=== PATIENT | female | born 1975 | race Caucasian/White ===

== ENCOUNTER 2017-12-25 16:59 | Outpatient (CLI) | payer BC ==
[2017-12-25] MEDS ORDERED: SODIUM CHLORIDE 0.9% 2,000 ML IV ONE (17:14)
[2017-12-25 18:12] VITALS: BP 136/83; PULSE 126; RESP 20; TEMP 100.8
[2017-12-25 18:31] LABS: Anion Gap 12 mmol/L; Blood Urea Nitrogen 13 mg/dL (7-17); Carbon Dioxide 27 mmol/L (22-30); Chloride 98 mmol/L (98-107); Glucose 110 mg/dL (74-99); Potassium 3.7 mmol/L (3.5-5.1); Sodium 137 mmol/L (137-145)
[2017-12-25 18:40] LABS: Anisocytosis Slight; Basophils % (A) 0 %; Eosinophils # (A) 0.2 k/uL (0-0.7); Eosinophils % (A) 1 %; HCT 29.5 % (34.0-46.0); HGB 9.4 gm/dL (11.4-16.0); Hypochromasia Slight; Lymphocytes # (A) 2.2 k/uL (1.0-4.8); Lymphocytes % (A) 17 %; MCH 24.9 pg (25.0-35.0); MCV 77.9 fL (80.0-100.0); Mean Platelet Volume 7.8; Microcytosis Slight; Monocytes # (A) 0.5 k/uL (0-1.0); Monocytes % (A) 4 %; Neutrophils % (A) 77 %; Platelet Count 325 k/uL (150-450); RBC 3.79 m/uL (3.80-5.40); RDW 16.1 % (11.5-15.5); WBC 13.1 k/uL (3.8-10.6)
--- NOTE | 2017-12-25 20:06 | P.PN ---
Progress Note - Text Progress Note Date: 12/25/17 Patient seen and evaluated. She was sent from the office for tachycardia and mild fever. She reports moderate dehydration. She feels better after IV bolus. She denies any abdominal pain. WBC improved from 16K from 3 days ago. She reports baseline tachycardia prior to her surgery. Metoprolol ordered. Will need additional bolus as needed.
--- NOTE | 2017-12-25 23:37 | CT ---
EXAMINATION TYPE: CT abdomen pelvis w con DATE OF EXAM: 12/25/2017 HISTORY: Fever and weakness, post op gastric bypass surgery x5 days CT DLP: 1860mGycm Automated Exposure Control for Dose Reduction was Utilized. CONTRAST: CT scan of the abdomen and pelvis is performed with oral and with IV Contrast, patient injected with 60 mL of Isovue 300. COMPARISON: None FINDINGS: Exam noted suboptimal due to poor contrast bolus. LUNG BASES: Dependent atelectasis is present bilaterally. There is additional right linear atelectasi s and/or scarring and more irregular left basilar atelectasis and/or consolidation. LIVER/GB: Gallbladder is distended margins. Liver is heterogeneously low dense suggesting mild diffus e fatty infiltration.. PANCREAS: No significant abnormality is seen. SPLEEN: There is 1.2 cm splenule in splenic hilum. ADRENALS: No significant abnormality is seen. KIDNEYS: No significant abnormality is seen. BOWEL: The oral contrast only reaches proximal small bowel loops in the left abdomen. There is wall t hickening and dilatation of the visualized distal esophagus which is contrast-filled. Surgical change s from gastric bypass procedure seen in the epigastric region. There is successful passage of contras t from the gastric remnant into the anastomotic small bowel loop which is mildly prominent origin. By passed stomach and duodenal sweep show no contrast opacification. Remainder small and large bowel are not suspiciously dilated. Diverticula are seen in the sigmoid colon without CT evidence for acute di verticulitis. UTERUS/ADNEXA: Anteverted uterus is seen. There is tubular shaped gas structure in vaginal canal like ly reflecting tampon. LYMPH NODES: No greater than 1cm abdominal or pelvic lymph nodes are appreciated. OSSEOUS STRUCTURES: No significant abnormality is seen. OTHER: Some heterogeneous ill-defined fluid and fat stranding left mid abdominal wall just above umbi licus coronal image 16 likely reflects ports for laparoscopic surgery, second smaller area is seen stuart periorly axial image 28. Cannot exclude cellulitis or soft tissue infection. No well-formed fluid col lection or abscess is seen. IMPRESSION: Left abdominal wall findings presumed reflect developing scar related to recent laparosco pic surgery, a cellulitis or soft tissue infection cannot be excluded in the appropriate clinical set ting. Possible left lung pneumonic consolidation, correlate clinically. No abscess is noted.
== END 2017-12-25 21:59 | disposition home or self-care (01) ==
LOC: RADCTMAIN 16:59
PROVIDERS: ATTEND Surgery Plastic and Reconstructive Surgery
DX: Z09 Encounter for follow-up examination after completed treatment for conditions other than malignant neoplasm (principal); E66.01 Morbid (severe) obesity due to excess calories; Z68.41 Body mass index [BMI] 40.0-44.9, adult; Z98.84 Bariatric surgery status
CPT/HCPCS: 96360; 96361; 80048; 85025; 74177; Q9967; 96365; 96366

== ENCOUNTER → 2017-12-28 | Outpatient (CLI) | payer BC ==
[~2017-12-28] MED LIST: SODIUM CHLORIDE 0.9% 500 ML in EMPTY BAG 1 BAG IV PRN
[2017-12-28 13:30] VITALS: BP 118/65; PULSE 120; RESP 16; TEMP 98.7
[2017-12-28] MEDS: SODIUM CHLORIDE 0.9% 1,000 ML IV SCH ×2 (13:33→14:39)
[2017-12-28 14:05] LABS: Basophils % (A) 0 %; Eosinophils # (A) 0.3 k/uL (0-0.7); Eosinophils % (A) 3 %; HCT 30.5 % (34.0-46.0); HGB 9.4 gm/dL (11.4-16.0); Hypochromasia Moderate; Lymphocytes # (A) 1.5 k/uL (1.0-4.8); Lymphocytes % (A) 16 %; MCH 24.3 pg (25.0-35.0); MCHC 30.8 g/dL (31.0-37.0); Mean Platelet Volume 6.5; Monocytes # (A) 0.4 k/uL (0-1.0); Monocytes % (A) 4 %; Neutrophils % (A) 74 %; Platelet Count 369 k/uL (150-450); RBC 3.87 m/uL (3.80-5.40); RDW 15.9 % (11.5-15.5); WBC 9.4 k/uL (3.8-10.6)
--- NOTE | 2017-12-28 15:47 | P.PN ---
Subjective Progress Note Date: 12/28/17 Patient is status revision from adjustable gastric band to post gastric bypass 1 week ago. She came in with acute dehydration. She has history of contaminated case initially. With IV fluid hydration, her dizziness has improved. No further reports of fevers. She denies any moderate abdominal pain. She is tolerating liquids. No dyspnea on exertion. She has history of baseline tachycardia preoperatively. Objective - Vital Signs Vital signs: Vital Signs Temp 98.7 F 12/28/17 13:28 Pulse 120 H 12/28/17 13:28 Resp 16 12/28/17 13:28 BP 118/65 12/28/17 13:28 Pulse Ox Intake & Output 12/27/17 12/28/17 12/28/17 18:59 06:59 18:59 Weight 106.594 kg - Exam GENERAL: Well developed and in no acute distress. Pleasant. HEENT: No sclera icterus. Extraocular movements grossly intact. Moist buccal mucosa. Head is atraumatic, normocephalic. Hears conversational speech. No nasal drainage. NECK: Supple without lymphadenopathy. No JV distention. CHEST: Non-labored respirations and equal bilateral excursions. CARDIOVASCULAR: Tachycardic. Palpable 2+ radial pulses. ABDOMEN: Soft, minimal left upper quadrant pain. Nondistended. No signs of infection MUSCULOSKELETAL: No clubbing, cyanosis or edema. NEUROLOGIC: No focal or lateralizing signs. PSYCH: Appropriate affect. Alert and oriented to person, place and time. SKIN: Good skin turgor. Well perfused. - Labs CBC & Chem 7: 12/28/17 13:30 Labs: Abnormal Lab Results - Last 24 Hours (Table) 12/28/17 Range/Units 13:30 Hgb 9.4 L (11.4-16.0) gm/dL Hct 30.5 L (34.0-46.0) % MCV 79.0 L (80.0-100.0) fL MCH 24.3 L (25.0-35.0) pg MCHC 30.8 L (31.0-37.0) g/dL RDW 15.9 H (11.5-15.5) % - Imaging and Cardiology CT scan - abdomen: report reviewed, image reviewed CT scan - pelvis: report reviewed, image reviewed (Previous computed tomography scan negative for leaks) Assessment and Plan (1) Dehydration Current Visit: Yes Status: Acute Code(s): E86.0 - DEHYDRATION SNOMED Code( s): 77645307 (2) S/P gastric bypass Current Visit: Yes Status: Acute Code(s): Z98.84 - BARIATRIC SURGERY STATUS SNOMED Code(s): 329383733 Plan: 1. IV fluid hydration 2. Continue with perioperative antibiotics due to initial contaminated case 3. Continue with metoprolol for heart rate control
== END | disposition home or self-care (01) ==
LOC: PROCWHC3 12:44
PROVIDERS: ATTEND Surgery Plastic and Reconstructive Surgery
DX: E86.0 Dehydration (principal)
CPT/HCPCS: 36415; 85025; 96360; 96361

== ENCOUNTER → 2018-10-08 | Outpatient (CLI) | payer BC ==
[2018-10-08 17:54] LABS: HCT 41.6 % (34.0-46.0); HGB 13.2 gm/dL (11.4-16.0); MCH 29.6 pg (25.0-35.0); MCHC 31.8 g/dL (31.0-37.0); MCV 93.1 fL (80.0-100.0); Mean Platelet Volume 7.7; Platelet Count 259 k/uL (150-450); RBC 4.46 m/uL (3.80-5.40); RDW 12.6 % (11.5-15.5); WBC 14.1 k/uL (3.8-10.6)
[2018-10-08 18:08] LABS: INR 0.9 (<1.2); Prothrombin Time 9.6 sec (9.0-12.0)
[2018-10-08 18:10] LABS: Partial Thromboplastin Time 18.3 sec (22.0-30.0)
[2018-10-09 00:33] LABS: Albumin 4.5 g/dL (3.80-4.90); Albumin/Globulin Ratio 2.05 (1.60-3.17); Anion Gap 10.7 mmol/L (4.00-12.00); Calcium 8.7 mg/dL (8.7-10.3); Carbon Dioxide 23.3 mmol/L (21.6-31.8); Globulin 2.2 g/dL (1.6-3.3); LDL Cholesterol,Calculated 68.8 mg/dL (0.0-131.0); Magnesium 1.7 mg/dL (1.5-2.4); Potassium 4.2 mmol/L (3.5-5.5); Total Bilirubin 0.3 mg/dL (0.3-1.2); Total Protein 6.7 g/dL (6.2-8.2); VLDL Calculation 22.2 mg/dL (5.00-40.00)
[2018-10-09 01:07] LABS: Parathyroid Hormone Intact 60.3 pg/mL (14.0-72.0)
[2018-10-09 01:36] LABS: Iron Saturation 16.27 (12.00-45.00)
[2018-10-09 01:43] LABS: Vitamin D 25 Hydroxy 32.5 ng/mL (30.0-100.0)
[2018-10-09 01:54] LABS: Folate, Serum 12.2 ng/mL
[2018-10-09 02:59] LABS: Hemoglobin A1C 5.8 % (4.0-6.0)
[2018-10-09 12:04] LABS: Zinc, Serum 57 ug/dL (60-130)
[2018-10-09 13:24] LABS: Vitamin A 47 ug/dL (38-106)
== END | disposition home or self-care (01) ==
LOC: LABWHC1 16:47
PROVIDERS: ATTEND Surgery Plastic and Reconstructive Surgery
DX: E66.01 Morbid (severe) obesity due to excess calories (principal); E21.1 Secondary hyperparathyroidism, not elsewhere classified; E89.1 Postprocedural hypoinsulinemia; D50.8 Other iron deficiency anemias; K90.89 Other intestinal malabsorption; E55.9 Vitamin D deficiency, unspecified; K76.9 Liver disease, unspecified; N19 Unspecified kidney failure; K50.90 Crohn's disease, unspecified, without complications
CPT/HCPCS: 36415; 80053; 80061; 82306; 82525; 82607; 82728; 82746; 83036; 83540; 83550; 83735; 83970; 84100; 84134; 84255; 84425; 84443; 84590; 84630; 85027; 85610; 85730

== ENCOUNTER 2019-01-10 07:27 | Day surgery (SDC) | payer BC ==
[2019-01-08 11:52] VITALS: BMI 35.9
[~2019-01-10 07:27] MED LIST changes: +LACTATED RINGERS 1,000 ML IV SCH; +LIDOCAINE 1% 20 ML VIAL (10MG/ML) FOR IV START INTRADERMA PRN; -SODIUM CHLORIDE 0.9% 500 ML in EMPTY BAG 1 BAG IV PRN
[2019-01-10 07:51] VITALS: RESP 16; TEMP 97.8
[2019-01-10] MEDS ORDERED: LIDOCAINE 1% 20 ML VIAL (10MG/ML) FOR IV START INTRADERMA ONE (08:04)
[2019-01-10] MEDS ORDERED: LIDOCAINE 1% INJ 10MG/ML (20 ML MDV) ONE (08:10)
[2019-01-10] MEDS ORDERED: PROPOFOL 10 MG/ML 20 ML VIAL IV ONE (08:10)
--- NOTE | 2019-01-10 08:17 | P.GSHP ---
History of Present Illness H&P Date: 01/10/19 CHIEF COMPLAINT: GERD HISTORY OF PRESENT ILLNESS: The patient is a 43-year-old female who presents reports gastroesophageal reflux disease. Upper endoscopy was offered for further evaluation and management. PAST MEDICAL HISTORY: Please see list. PAST SURGICAL HISTORY: Please see list. MEDICATIONS: Please see list. ALLERGIES: Please see list. SOCIAL HISTORY: No illicit drug use FAMILY HISTORY: No reports of Crohn disease or ulcerative colitis. REVIEW OF ORGAN SYSTEMS: CONSTITUTIONAL: No reports of fevers or chills. GI: Denies any blood in stools or constipation. PHYSICAL EXAM: VITAL SIGNS: Stable GENERAL: Well-developed and pleasant in no acute distress. HEENT: No scleral icterus. Extraocular movements grossly intact. Moist buccal mucosa. NECK: Supple without lymphadenopathy. CHEST: Unlabored respirations. Equal bilateral excursions. CARDIOVASCULAR: Regular rate and rhythm. Distal 2+ pulses. ABDOMEN: Soft, nondistended. MUSCULOSKELETAL: No clubbing, cyanosis, or edema. ASSESSMENT: 1. Gastroesophageal reflux disease PLAN: 1. Recommend proceeding with an upper endoscopy Past Medical History Past Medical History: GERD/Reflux, Hypertension, Osteoarthritis (OA) Additional Past Medical History / Comment(s): DEHYDRATION POST BARIATRIC SURGERY. History of Any Multi-Drug Resistant Organisms: None Reported Past Surgical History: Bariatric Surgery, Section, Tonsillectomy Additional Past Surgical History / Comment(s): GASTRIC BYPASS-12/2017 Past Anesthesia/Blood Transfusion Reactions: No Reported Reaction Smoking Status: Former smoker - Past Family History Father Family Medical History: No Reported History Medications and Allergies Home Medications Medication Instructions Recorded Confirmed Type Amitriptyline HCl [Elavil] 10 mg PO HS 12/28/17 01/10/19 History Omeprazole [PriLOSEC] 20 mg PO DAILY 12/28/17 01/10/19 History oxyCODONE HCL/ACETAMINOPHEN 1 tab PO BID PRN 12/28/17 01/10/19 History [Percocet 10-325 mg] tiZANidine HCL [Zanaflex] 6 mg PO HS PRN 12/28/17 01/10/19 History Ibuprofen [Motrin] 800 mg PO BID PRN 01/08/19 01/10/19 History Allergies Allergy/AdvReac Type Severity Reaction Status Date / Time No Known Allergies Allergy Verified 01/10/19 07:56 Surgical - Exam Vital Signs Temp Pulse Resp BP Pulse Ox 97.8 F 86 16 141/70 99 01/10/19 07:50 01/10/19 07:50 01/10/19 07:50 01/10/19 07:50 01/10/19 07:50
--- NOTE | 2019-01-10 08:26 | P.PCN ---
Date of Procedure: 01/10/19 Description of Procedure: PREOPERATIVE DIAGNOSIS: Gastroesophageal reflux disease Dysphagia. s/p Arsh-en-y gastric bypass. Nausea with vomiting. Morbid obesity. Epigastric abdominal pain POSTOPERATIVE DIAGNOSIS: Gastroesophageal reflux disease Dysphagia. s/p Arsh-en-y gastric bypass. Nausea with vomiting. Morbid obesity. Epigastric abdominal pain Gastrojejunal stricture with chronic ulcer without perforation OPERATION: Esophagogastrojejunoscopy with balloon dilatation 20 mm. SURGEON: Roberta Duval MD ANESTHESIA: MAC. INDICATIONS: The patient is a 43-year-old female who presents with a history of dysphagia, gastric bypass including new-onset nausea and vomiting. Benefits and risks of the procedure were described. Informed consent was obtained. DESCRIPTION: The patient was brought into the endoscopy suite and laid in the left lateral decubitus position. After a timeout was confirmed, the procedure was initiated. An Olympus gastroscope was passed along the posterior oropharynx down to the distal esophagus where the squamocolumnar junction was unremarkable. The gastric pouch was entered. A gastrojejunal stricture of 15 mm was found as the adult gastroscope was 9.5 mm in size. A [employer] balloon dilator was placed through the scope. Final insufflation up to 20 mm was performed with a total of 2 minutes. The scope was advanced up to 60 cm from the incisors into the Arsh limb. The mucosa of the gastrojejunal anastomosis was intact. However chronic gastrojejunal marginal ulcer was encountered. No full-thickness injury was encountered. The GI tract was desufflated. The patient tolerated the procedure well. FINDINGS: Stricture of approximately 15 mm encountered. Chronic gastrojejunal ulceration encountered. Successful balloon dilatation to 20 mm. Diaphragmatic hiatus at 40 cm. Gastric pouch 10 cm. RECOMMENDATIONS: Omeprazole of at least 2 weeks. Plan - Discharge Summary Discharge Rx Participant: No New Discharge Prescriptions: Discontinued Ibuprofen [Motrin] 800 mg PO BID PRN PRN Reason: Pain No Action tiZANidine HCL [Zanaflex] 6 mg PO HS PRN PRN Reason: Insomnia Omeprazole [PriLOSEC] 20 mg PO DAILY Amitriptyline HCl [Elavil] 10 mg PO HS oxyCODONE HCL/ACETAMINOPHEN [Percocet 10-325 mg] 1 tab PO BID PRN PRN Reason: Pain Discharge Medication List Amitriptyline HCl [Elavil] 10 mg PO HS 12/28/17 [History] Omeprazole [PriLOSEC] 20 mg PO DAILY 12/28/17 [History] oxyCODONE HCL/ACETAMINOPHEN [Percocet 10-325 mg] 1 tab PO BID PRN 12/28/17 [History] tiZANidine HCL [Zanaflex] 6 mg PO HS PRN 12/28/17 [History] Follow up Appointment(s)/Referral(s): Roberta Duval MD [STAFF PHYSICIAN] - 02/04/19 Patient Instructions/Handouts: Peptic Ulcer (ED), Esophageal Dilation (DC) Activity/Diet/Wound Care/Special Instructions: Avoid NSAIDs, ibuprofen, Aleve for ulcers. Take omeprazole daily for 2 weeks Discharge Disposition: HOME SELF-CARE
[2019-01-10 08:45] VITALS: BP 120/76; PULSE 89
== END 2019-01-10 09:04 | disposition home or self-care (01) ==
LOC: ORWHC2ENDO 07:27
PROVIDERS: ATTEND Surgery Plastic and Reconstructive Surgery
DX: K95.89 Other complications of other bariatric procedure (principal); K28.7 Chronic gastrojejunal ulcer without hemorrhage or perforation; K31.89 Other diseases of stomach and duodenum; K44.9 Diaphragmatic hernia without obstruction or gangrene; K21.9 Gastro-esophageal reflux disease without esophagitis; E66.01 Morbid (severe) obesity due to excess calories; I10 Essential (primary) hypertension; M19.90 Unspecified osteoarthritis, unspecified site; Z87.891 Personal history of nicotine dependence; Z98.84 Bariatric surgery status; R13.10 Dysphagia, unspecified; Z68.35 Body mass index [BMI] 35.0-35.9, adult; F39 Unspecified mood [affective] disorder; Z79.1 Long term (current) use of non-steroidal anti-inflammatories (NSAID); Z79.899 Other long term (current) drug therapy; Y83.6 Removal of other organ (partial) (total) as the cause of abnormal reaction of the patient, or of later complication, without mention of misadventure at the time of the procedure
CPT/HCPCS: 81025; 43245; J2001; J2704; C1726

== ENCOUNTER → 2019-03-19 | Outpatient (CLI) | payer BC ==
--- NOTE | 2019-03-19 18:21 | P.PN ---
Subjective Progress Note Date: 03/19/19 HPI: Repeat blood pressure with 129/70. She has epigastric pain. Large pouch requiring revision. CT scan of the abdomen for chronic abdominal pain. May need revision of GJ pouch. Follow up after scans. Repeat EGD for ulcer
[2019-03-20 10:44] VITALS: BP 129/70; PULSE 89; RESP 16; TEMP 98.2
== END | disposition home or self-care (01) ==
LOC: BARWHC3 16:36
PROVIDERS: ATTEND Surgery Plastic and Reconstructive Surgery
DX: R10.13 Epigastric pain (principal)
CPT/HCPCS: 99211

== ENCOUNTER → 2019-04-14 | Outpatient (CLI) | payer BC ==
--- NOTE | 2019-04-14 08:40 | CT ---
EXAMINATION TYPE: CT abdomen pelvis w con DATE OF EXAM: 04/14/2019 COMPARISON: December 25, 2017 HISTORY: Small bowel obstruction CT DLP: 1751.1 mGycm CONTRAST: CT scan of the abdomen and pelvis is performed with Oral Contrast and with IV Contrast, patient injec noemy with 100 mL of Isovue 300. FINDINGS: LUNG BASES-: No visible nodule. No infiltrate. LIVER/GB: No calcified gallstones. No space occupying hepatic lesion. Biliary tree is of normal ca liber. PANCREAS: No inflammation. No distinct mass. SPLEEN: No splenic enlargement. No lesion seen. ADRENALS: No nodule. No thickening. KIDNEYS/BLADDER: No hydronephrosis. No nephrolithiasis. No distinct renal mass. Urinary bladder g rossly unremarkable. BOWEL: Surgical changes from gastric bypass procedure . There is successful passage of contrast from the gastric remnant into the anastomotic small bowel loop. Anastomotic small bowel loop is mildly dis tended however contrast does flow distally into normal caliber small bowel. No evidence for obstructi on at this point in time. Normal appendix identified. GENITAL ORGANS: 1.1 cm right ovarian cyst noted. Uterus and left ovary are unremarkable. LYMPH NODES: No greater than 1cm abdominal or pelvic lymph nodes are appreciated. AORTA: No significant abnormality. OSSEOUS STRUCTURES: No significant abnormality is seen. OTHER: No significant additional abnormality is seen. IMPRESSION: 1. Surgical changes from gastric bypass procedure . There is successful passage of contrast from the gastric remnant into the anastomotic small bowel loop. Anastomotic small bowel loop is mildly distend ed however contrast does flow distally into normal caliber small bowel. No evidence for obstruction a t this point in time.
== END ==
LOC: RADCTMAIN 07:25
PROVIDERS: ATTEND Surgery Plastic and Reconstructive Surgery
DX: K56.699 Other intestinal obstruction unspecified as to partial versus complete obstruction (principal); Z98.84 Bariatric surgery status
CPT/HCPCS: 74177; Q9967

== ENCOUNTER → 2019-06-05 | Day surgery (SDC) | payer BC ==
[2019-06-02 17:36] VITALS: BMI 34.8
[~2019-06-05] MED LIST changes: -LIDOCAINE 1% 20 ML VIAL (10MG/ML) FOR IV START INTRADERMA PRN; +LIDOCAINE 1% INJ 10MG/ML (20 ML MDV) ONE; +PROPOFOL 10 MG/ML 20 ML VIAL IV ONE
[2019-06-05 07:42] VITALS: RESP 16; TEMP 97.3
--- NOTE | 2019-06-05 07:46 | P.GSHP ---
History of Present Illness H&P Date: 06/05/19 CHIEF COMPLAINT: GERD HISTORY OF PRESENT ILLNESS: The patient is a 44-year-old female who presents reports gastroesophageal reflux disease. Upper endoscopy was offered for further evaluation and management. PAST MEDICAL HISTORY: Please see list. PAST SURGICAL HISTORY: Please see list. MEDICATIONS: Please see list. ALLERGIES: Please see list. SOCIAL HISTORY: No illicit drug use FAMILY HISTORY: No reports of Crohn disease or ulcerative colitis. REVIEW OF ORGAN SYSTEMS: CONSTITUTIONAL: No reports of fevers or chills. GI: Denies any blood in stools or constipation. PHYSICAL EXAM: VITAL SIGNS: Stable GENERAL: Well-developed and pleasant in no acute distress. HEENT: No scleral icterus. Extraocular movements grossly intact. Moist buccal mucosa. NECK: Supple without lymphadenopathy. CHEST: Unlabored respirations. Equal bilateral excursions. CARDIOVASCULAR: Regular rate and rhythm. Distal 2+ pulses. ABDOMEN: Soft, nondistended. MUSCULOSKELETAL: No clubbing, cyanosis, or edema. ASSESSMENT: 1. Gastroesophageal reflux disease PLAN: 1. Recommend proceeding with an upper endoscopy Past Medical History Past Medical History: GERD/Reflux, Hypertension, Osteoarthritis (OA) Additional Past Medical History / Comment(s): Past hx of dehydration post bariatric sx. Hx c/o pain in chest, improved w/ Rx. Vomiting occ w/ food. Sinus sx currently. History of Any Multi-Drug Resistant Organisms: None Reported Past Surgical History: Bariatric Surgery, Section, Orthopedic Surgery, Tonsillectomy Additional Past Surgical History / Comment(s): lap band 2006, GASTRIC BYPASS- 12/2017, neck sx X2 - fusion, then rods placed, left shoulder, rt ankle/ metal is now out, rt hand, knee arthroscopy. EGD w/ dilation 01/10/19 Past Anesthesia/Blood Transfusion Reactions: Postoperative Nausea & Vomiting (PONV) Additional Past Anesthesia/Blood Transfusion Reaction / Comment(s): denies Smoking Status: Former smoker - Past Family History Father Family Medical History: No Reported History Mother Family Medical History: Coronary Artery Disease (CAD) Additional Family Medical History / Comment(s): hx blood clots in heart, has stents Medications and Allergies Home Medications Medication Instructions Recorded Confirmed Type Amitriptyline HCl [Elavil] 10 mg PO HS 12/28/17 06/05/19 History oxyCODONE HCL/ACETAMINOPHEN 1 tab PO DAILY PRN 12/28/17 06/05/19 History [Percocet 10-325 mg] tiZANidine HCL [Zanaflex] 6 mg PO HS PRN 12/28/17 06/05/19 History Omeprazole 40 mg PO DAILY #90 capsule. 01/10/19 06/05/19 Rx Verapamil HCl [Verapamil ER] 120 mg PO QAM 03/27/19 06/05/19 History Guaifen/Phenyleph/Acetaminophn 2 each PO Q8H PRN 06/02/19 06/05/19 History [Tylenol Sinus Severe Caplet] Multivitamins, Thera [Multivitamin 1 tab PO DAILY 06/02/19 06/05/19 History (formulary)] Allergies Allergy/AdvReac Type Severity Reaction Status Date / Time No Known Allergies Allergy Verified 06/05/19 07:34 Surgical - Exam Vital Signs Temp Pulse Resp BP Pulse Ox 97.3 F L 76 16 149/90 99 06/05/19 07:41 06/05/19 07:41 06/05/19 07:41 06/05/19 07:41 06/05/19 07:41
--- NOTE | 2019-06-05 08:20 | P.PCN ---
Date of Procedure: 06/05/19 Description of Procedure: PREOPERATIVE DIAGNOSIS: History of gastrojejunal ulcers Tobacco use disorder Epigastric abdominal pain Morbid obesity due to excess calories, BMI 35 5. POSTOPERATIVE DIAGNOSIS: History of gastrojejunal ulcers Tobacco use disorder Epigastric abdominal pain Morbid obesity due to excess calories, BMI 35 5. Diffuse gastritis Diaphragmatic hiatal hernia OPERATION: Esophagogastrojejunoscopy with balloon dilatation from 15 to 18 mm. SURGEON: Roberta Duval MD ANESTHESIA: MAC. INDICATIONS: The patient is a 44-year-old female who presents with a history of gastrojejunal ulcers of epigastric abdominal pain. Benefits and risks of the procedure were described. Informed consent was obtained. DESCRIPTION: The patient was brought into the endoscopy suite and laid in the left lateral decubitus position. After a timeout was confirmed, the procedure was initiated. An Olympus gastroscope was passed along the posterior oropharynx down to the distal esophagus where the squamocolumnar junction was unremarkable. The gastric pouch was entered. A gastrojejunal stricture of 12 mm was found as the adult gastroscope was 9.5 mm in size. A fl3ur balloon dilator was placed through the scope. Final insufflation up to 18 mm was performed with a total of 2 minutes. The scope was advanced up to 60 cm from the incisors into the Arsh limb. The mucosa of the gastrojejunal anastomosis was intact. Resolved chronic gastrojejunal marginal ulcer was encountered. Localized gastritis along the pouch was found. No full-thickness injury was encountered. The GI tract was desufflated. The patient tolerated the procedure well. FINDINGS: Squamocolumnar junction unremarkable at 35 cm. Diaphragmatic hiatus 40 cm from incisors Diaphragmatic hiatal hernia, 4 cm Gastrojejunal anastomosis at 50 cm Large gastric pouch, 10 cm Stricture of approximately 15 mm encountered. Resolved chronic gastrojejunal ulceration encountered. Successful balloon dilatation to 18 mm. RECOMMENDATIONS: Tobacco cessation advised Revision of gastric pouch advised Repair of diaphragmatic hiatal hernia advised Plan - Discharge Summary Discharge Rx Participant: No New Discharge Prescriptions: No Action tiZANidine HCL [Zanaflex] 6 mg PO HS PRN PRN Reason: Insomnia Amitriptyline HCl [Elavil] 10 mg PO HS oxyCODONE HCL/ACETAMINOPHEN [Percocet 10-325 mg] 1 tab PO DAILY PRN PRN Reason: Pain Omeprazole 40 mg PO DAILY #90 capsule. Verapamil HCl [Verapamil ER] 120 mg PO QAM Guaifen/Phenyleph/Acetaminophn [Tylenol Sinus Severe Caplet] 2 each PO Q8H PRN PRN Reason: Sinus Symptoms Multivitamins, Thera [Multivitamin (formulary)] 1 tab PO DAILY Discharge Medication List Amitriptyline HCl [Elavil] 10 mg PO HS 12/28/17 [History] oxyCODONE HCL/ACETAMINOPHEN [Percocet 10-325 mg] 1 tab PO DAILY PRN 12/28/17 [History] tiZANidine HCL [Zanaflex] 6 mg PO HS PRN 12/28/17 [History] Omeprazole 40 mg PO DAILY #90 capsule. 01/10/19 [Rx] Verapamil HCl [Verapamil ER] 120 mg PO QAM 03/27/19 [History] Guaifen/Phenyleph/Acetaminophn [Tylenol Sinus Severe Caplet] 2 each PO Q8H PRN 06/02/19 [History] Multivitamins, Thera [Multivitamin (formulary)] 1 tab PO DAILY 06/02/19 [Hi story] Follow up [facility]ment(s[facility] [facility] [place] [place] [facility] - [place]19 Patient Instructions/Handouts: Hiatal Hernia (DC), Esophageal Dilation (DC), How to Stop Smoking (ED) Activity/Diet/Wound Care/Special Instructions: Diet as tolerated. Tobacco cessation. Discharge Disposition: HOME SELF-CARE
[2019-06-05 08:49] VITALS: BP 121/81; PULSE 85
== END | disposition home or self-care (01) ==
LOC: ORWHC2ENDO 07:15
PROVIDERS: ATTEND Surgery Plastic and Reconstructive Surgery
DX: K91.89 Other postprocedural complications and disorders of digestive system (principal); K31.89 Other diseases of stomach and duodenum; K29.70 Gastritis, unspecified, without bleeding; K44.9 Diaphragmatic hernia without obstruction or gangrene; K21.9 Gastro-esophageal reflux disease without esophagitis; E66.01 Morbid (severe) obesity due to excess calories; I10 Essential (primary) hypertension; F39 Unspecified mood [affective] disorder; M19.90 Unspecified osteoarthritis, unspecified site; Z87.11 Personal history of peptic ulcer disease; Z68.35 Body mass index [BMI] 35.0-35.9, adult; Z98.84 Bariatric surgery status; Z87.891 Personal history of nicotine dependence; Z79.899 Other long term (current) drug therapy; Z90.89 Acquired absence of other organs; Z98.1 Arthrodesis status; Z82.49 Family history of ischemic heart disease and other diseases of the circulatory system
CPT/HCPCS: 43249; 81025; J2001; J2704; C1726

== ENCOUNTER → 2019-06-18 | Outpatient (CLI) | payer BC ==
[2019-06-18 15:07] VITALS: BP 121/71; PULSE 80; RESP 16; TEMP 98.8; BMI 35.0
--- NOTE | 2019-06-18 15:27 | P.PN ---
Subjective Progress Note Date: 06/18/19 DATE OF SERVICE: 06/18/2019 CHIEF COMPLAINT: Status post gastric bypass HISTORY OF PRESENT ILLNESS: Shameka Murguia is a 44-year-old female who comes in with multiple bariatric procedures from adjustable gastric band to conversion to gastric bypass, November 2017. She is over 1.5 year out. She comes in with trouble with weigh loss including history of gastrojejunal ulcer. She also comes in with hypertension. Her blood pressure is controlled with two medications. She reports lack of restriction. She has history of complications with her band x 2 prior to her gastric bypass secondary to gastric prolapse and slippage. She is looking for revision of her gastric bypass. She also still has her gallbladder. At height of 5 feet 4 inches, her ideal body weight is 144 pounds. Highest weight 244 pounds, BMI 42.0. Her lowest weight was 155 pounds. She comes in 204 pounds from 205 pounds, 3 months ago. She has lost 1 pounds in 2 months. Her body mass index is 35.0. She is 60 pounds overweight. PAST MEDICAL HISTORY: 1. Morbid obesity due to excess calories 2. Body mass index of 35.2 3. Gastroesophageal reflux disease 4. Osteoarthritis of the lower back. 5. Hypertensive heart disease. 6. Depressive disorder PAST SURGICAL HISTORY: 1. ,Tonsillectomy 2. Adjustable gastric band with removal 3. Gastric bypass 4. Upper endoscopy HOME MEDICATIONS: Home Medications Medication Instructions Recorded Confirmed Amitriptyline HCl [Elavil] 10 mg PO HS 12/28/17 03/27/19 oxyCODONE HCL/ACETAMINOPHEN 1 tab PO BID PRN 12/28/17 03/27/19 [Percocet 10-325 mg] tiZANidine HCL [Zanaflex] 6 mg PO HS PRN 12/28/17 03/27/19 Verapamil HCl [Verapamil ER] 120 mg PO QAM 03/27/19 03/27/19 Previous Rx's Medication Instructions Recorded Omeprazole 40 mg PO DAILY #90 capsule. 01/10/19 ALLERGIES: SOCIAL HISTORY: Past tobacco use. FAMILY HISTORY: No family history of ulcerative colitis disease or Crohn's disease. Family history of morbid obesity. No lupus in the family. No reports of stomach or esophageal cancer. REVIEW OF ORGAN SYSTEMS: CONSTITUTIONAL: At height of 5 feet 4 inches, her ideal body weight is 144 pounds. Highest weight 244 pounds, BMI 42.0. Her lowest weight was 155 pounds. HEENT: Denies any active troubles with vision or hearing. No active troubles with swallowing. ENDOCRINE: No diabetes. No hypothyroidism. CARDIOVASCULAR: No past reports of palpitations or heart attacks or chest pain. RESPIRATORY: No pneumonia or sleep apnea. GASTROINTESTINAL: Denies any bright red blood per rectum. No diarrhea. No constipation. MUSCULOSKELETAL: Has lower back pain and joint pain. NEURO: No headaches. No seizure disorders. PSYCH: Has depression. No suicidal ideation. RHEUMATOLOGIC: No lupus. No rheumatoid arthritis. HEMATOLOGIC: Denies any abnormal bleeding or bruising. No personal history of DVTs. SKIN: No rash. No skin cancer. PHYSICAL EXAM: VITAL SIGNS: Height 5 foot 4 inches, weight 204 pounds. BMI 35.0 Vital Signs Temp 98.8 F 06/18/19 15:04 Pulse 80 06/18/19 15:04 Resp 16 06/18/19 15:04 BP 121/71 06/18/19 15:04 Pulse Ox GENERAL: Well-developed in no acute distress. HEENT: No scleral icterus. Extraocular movements grossly intact. Hears conversational speech. No nasal drainage. NECK: Supple without lymphadenopathy. CHEST: Nonlabored respirations with equal bilateral excursions. CARDIOVASCULAR: Regular rate and regular rhythm. Distal 2+ pulses. ABDOMEN: Obese, soft, nontender, nondistended. MUSCULOSKELETAL: No clubbing, cyanosis. NEURO: No focal or lateralizing signs. Cranial nerves 2 through 12 grossly within normal limits. PSYCH: Appropriate affect. Alert and oriented to person, place and time. SKIN: Good skin turgor. Well perfused. STUDIES: CT of the abdomen and pelvis reviewed demonstrates hiatal hernia. Moderate diverticulosis. No mesenteric swirl found. Right ovarian cyst REPORTS: Surgical option of bariatric procedure. MEDICAL REPORT: EGD FINDINGS: Squamocolumnar junction unremarkable at 35 cm. Diaphragmatic hiatus 40 cm from incisors Diaphragmatic hiatal hernia, 4 cm Gastrojejunal anastomosis at 50 cm Large gastric pouch, 10 cm Stricture of approximately 15 mm encountered. Resolved chronic gastrojejunal ulceration encountered. Successful balloon dilatation to 18 mm. EKG reviewed and abnormal ASSESSMENT: 1. Morbid obesity due to excess calories 2. Body mass index of 35.2 3. Gastroesophageal reflux disease 4. Osteoarthritis of the lower back. 5. Hypertensive heart disease. 6. Depressive disorder 7. Diaphragmatic hiatal hernia 8. Complications of bariatric procedure, adjustable gastric band 9. History of gastrojejunal ulcer PLAN: 1. Recommend robotic hiatal hernia repair with revision of her gastrojejunal an astosis as she reports symptoms of reflux 2. Will need cardiac risk assessment for abnormal EKG 3. Inpatient hospitalization over 2 nights described 4. She is elevated risk for perioperative complications including leak and strictures secondary to pre-existing history of gastric prolapse and comp lications from her previous adjustable gastric band. 5. Recommend bariatric labs and correction of nutritional deficiencies. Laboratory Last Values WBC 12.0 k/uL (3.8-10.6) H 06/18/19 16:09 RBC 4.22 m/uL (3.80-5.40) 06/18/19 16:09 Hgb 12.8 gm/dL (11.4-16.0) 06/18/19 16:09 Hct 38.7 % (34.0-46.0) 06/18/19 16:09 MCV 91.7 fL (80.0-100.0) 06/18/19 16:09 MCH 30.2 pg (25.0-35.0) 06/18/19 16:09 MCHC 33.0 g/dL (31.0-37.0) 06/18/19 16:09 RDW 12.5 % (11.5-15.5) 06/18/19 16:09 Plt Count 247 k/uL (150-450) 06/18/19 16:09 PT 9.4 sec (9.0-12.0) 06/18/19 16:09 INR 0.9 (<1.2) 06/18/19 16:09 APTT 23.1 sec (22.0-30.0) 06/18/19 16:09 Sodium 137 mmol/L (135-145) 06/18/19 16:09 Potassium 4.4 mmol/L (3.5-5.5) 06/18/19 16:09 Chloride 103 mmol/L (96-109) 06/18/19 16:09 Carbon Dioxide 25.4 mmol/L (21.6-31.8) 06/18/19 16:09 Anion Gap 8.60 mmol/L (4.00-12.00) 06/18/19 16:09 BUN 9.0 mg/dL (9.0-27.0) 06/18/19 16:09 Creatinine 0.8 mg/dL (0.6-1.5) 06/18/19 16:09 Est GFR (CKD-EPI)AfAm 104.7 (60.0-200.0) 06/18/19 16:09 Est GFR (CKD-EPI)NonAf 90.3 (60.0-200.0) 06/18/19 16:09 BUN/Creatinine Ratio 11.25 Ratio (12.00-20.00) L 06/18/19 16:09 Glucose 111 mg/dL (70-110) H 06/18/19 16:[address] Glu mg/dL 111 06/18/19 16:09 Hemoglobin A1c 5.5 % (4.0-6.0) 06/18/19 16:09 Calcium 8.5 mg/dL (8.7-10.3) L 06/18/19 16:09 Phosphorus 3.4 mg/dL (2.4-5.1) 06/18/19 16:09 Magnesium 1.9 mg/dL (1.5-2.4) 06/18/19 16:09 Iron 25 ug/dL (50-170) L 06/18/19 16:09 TIBC 340 ug/dL (228-460) 06/18/19 16:09 % Saturation 7.35 (12.00-45.00) L 06/18/19 16:09 Ferritin 16.9 ng/mL (10.0-291.0) 06/18/19 16:09 Total Bilirubin 0.3 mg/dL (0.3-1.2) 06/18/19 16:09 AST 17 U/L (13-35) 06/18/19 16:09 ALT 14 U/L (8-44) 06/18/19 16:09 Alkaline Phosphatase 81 U/L (41-126) 06/18/19 16:09 Total Protein 6.2 g/dL (6.2-8.2) 06/18/19 16:09 Albumin 4.30 g/dL (3.80-4.90) 06/18/19 16:09 Globulin 1.9 g/dL (1.6-3.3) 06/18/19 16:09 Albumin/Globulin Ratio 2.26 g/dL (1.60-3.17) 06/18/19 16:09 Prealbumin 19.0 mg/dL (18.0-42.0) 06/18/19 16:09 Triglycerides 74.0 mg/dL (0.0-149.0) 06/18/19 16:09 Cholesterol 131 mg/dL (0-200) 06/18/19 16:09 LDL Cholesterol, Calc 60.2 mg/dL (0.0-131.0) 06/18/19 16:09 VLDL Cholesterol, Calc 14.80 mg/dL (5.00-40.00) 06/18/19 16:09 HDL Cholesterol 56.0 mg/dL (40.0-60.0) 06/18/19 16:09 Cholesterol/HDL Ratio 2.34 06/18/19 16:09 Vitamin A 44 ug/dL (38-106) 06/18/19 16:09 Vitamin B1 73 ug/L (38-122) 06/18/19 16:09 Vitamin B12 569.0 pg/mL (200.0-944.0) 06/18/19 16:09 Vitamin D 25-Hydroxy 31.7 ng/mL (30.0-100.0) 06/18/19 16:09 Folate 17.8 ng/mL 06/18/19 16:09 TSH 0.700 uIU/mL (0.350-5.500) 06/18/19 16:09 PTH Intact 90.8 pg/mL (14.0-72.0) H 06/18/19 16:09 Copper 1544 ug/L (810-1990) 06/18/19 16:09 Selenium 117 mcg/L (63-160) 06/18/19 16:09 Zinc 65 ug/dL (60-130) 06/18/19 16:09 EKG EKG PERFORMED 06/18/19 16:11 Iron is low PTH is elevated WBC is elevated Objective - Vital Signs Vital signs: Vital Signs Temp 98.8 F 06/18/19 15:04 Pulse 80 06/18/19 15:04 Resp 16 06/18/19 15:04 BP 121/71 06/18/19 15:04 Pulse Ox Intake & Output 06/17/19 06/18/19 06/18/19 18:59 06:59 18:59 Weight 92.533 kg - Labs CBC & Chem 7: 06/18/19 16:09 06/18/19 16:09
[2019-06-18 16:50] LABS: HCT 38.7 % (34.0-46.0); HGB 12.8 gm/dL (11.4-16.0); MCH 30.2 pg (25.0-35.0); MCV 91.7 fL (80.0-100.0); Mean Platelet Volume 7.9; Platelet Count 247 k/uL (150-450); RBC 4.22 m/uL (3.80-5.40); RDW 12.5 % (11.5-15.5)
[2019-06-18 16:57] LABS: INR 0.9 (<1.2); Partial Thromboplastin Time 23.1 sec (22.0-30.0); Prothrombin Time 9.4 sec (9.0-12.0)
[2019-06-19 00:59] LABS: % Iron Saturation 7.35 (12.00-45.00); African American GFR (CKD) 104.7 (60.0-200.0); Albumin 4.3 g/dL (3.80-4.90); Albumin/Globulin Ratio 2.26 (1.60-3.17); Anion Gap 8.6 mmol/L (4.00-12.00); BUN/Creat Ratio 11.25 Ratio (12.00-20.00); Calcium 8.5 mg/dL (8.7-10.3); Carbon Dioxide 25.4 mmol/L (21.6-31.8); Chol/HDL Ratio 2.34; Globulin 1.9 g/dL (1.6-3.3); LDL Cholesterol,Calculated 60.2 mg/dL (0.0-131.0); Magnesium 1.9 mg/dL (1.5-2.4); Non-African American GFR(CKD) 90.3 (60.0-200.0); Phosphorus 3.4 mg/dL (2.4-5.1); Potassium 4.4 mmol/L (3.5-5.5); Total Bilirubin 0.3 mg/dL (0.3-1.2); Total Protein 6.2 g/dL (6.2-8.2); VLDL Calculation 14.8 mg/dL (5.00-40.00)
[2019-06-19 01:34] LABS: Ferritin 16.9 ng/mL (10.0-291.0); Folate, Serum 17.8 ng/mL
[2019-06-19 01:43] LABS: Hemoglobin A1C 5.5 % (4.0-6.0)
[2019-06-19 14:02] LABS: Zinc, Serum 65 ug/dL (60-130)
[2019-06-20 07:10] LABS: Vitamin A 44 ug/dL (38-106)
[2019-06-20 12:51] LABS: Vit B1(Thiamine) 73 ug/L (38-122)
[2019-06-20 22:29] LABS: Selenium 117 mcg/L (63-160)
== END | disposition home or self-care (01) ==
LOC: BARWHC3 13:44
PROVIDERS: ATTEND Surgery Plastic and Reconstructive Surgery
DX: Z48.815 Encounter for surgical aftercare following surgery on the digestive system (principal); E66.01 Morbid (severe) obesity due to excess calories; K21.9 Gastro-esophageal reflux disease without esophagitis; M19.90 Unspecified osteoarthritis, unspecified site; I11.9 Hypertensive heart disease without heart failure; F32.9 Major depressive disorder, single episode, unspecified; K44.9 Diaphragmatic hernia without obstruction or gangrene; K95.09 Other complications of gastric band procedure; R94.31 Abnormal electrocardiogram [ECG] [EKG]; Z68.35 Body mass index [BMI] 35.0-35.9, adult; Z98.84 Bariatric surgery status; Z87.19 Personal history of other diseases of the digestive system; Z87.891 Personal history of nicotine dependence; Z83.49 Family history of other endocrine, nutritional and metabolic diseases; Z79.899 Other long term (current) drug therapy; Z79.891 Long term (current) use of opiate analgesic
CPT/HCPCS: 80053; 80061; 82306; 82525; 82607; 82728; 82746; 83036; 83540; 83550; 83735; 83970; 84100; 84134; 84255; 84425; 84443; 84590; 84630; 85027; 85610; 85730; 93005; 99211

== ENCOUNTER → 2020-09-07 | Outpatient (CLI) | payer BC | END | disposition home or self-care (01) | LOC: LABWHC1 16:05 | PROVIDERS: ATTEND Surgery Plastic and Reconstructive Surgery | DX: R94.31 Abnormal electrocardiogram [ECG] [EKG] (principal) | CPT/HCPCS: 36415; 93005 ==

== ENCOUNTER 2020-10-07 05:59 | Observation (INO) | payer BC ==
[~2020-10-07 05:59] MED LIST changes: +DEXAMETHASONE SOD PHOSPHATE 4 MG/ML 1 ML VIAL IV ONE; +HEPARIN SODIUM,PORCINE/PF 5,000 UNIT/0.5 ML SYRINGE SQ PRN; -LACTATED RINGERS 1,000 ML IV SCH; +LIDOCAINE 1% (10MG/ML) FOR IV START INTRADERMA PRN; -LIDOCAINE 1% INJ 10MG/ML (20 ML MDV) ONE; +MIDAZOLAM 2 MG/2 ML VIAL IV PRN; +ONDANSETRON 4 MG/2 ML VIAL IVP ONE; -PROPOFOL 10 MG/ML 20 ML VIAL IV ONE
[2020-10-07] MEDS: LACTATED RINGERS 1,000 ML IV SCH (06:36)
[2020-10-07] MEDS ORDERED: LIDOCAINE 1% INJ 10MG/ML (20 ML MDV) ONE ×2 (07:42)
[2020-10-07] MEDS ORDERED: fentaNYL (PF) 50 MCG/ML 2 ML AMP ONE (07:42)
[2020-10-07] MEDS ORDERED: PROPOFOL 10 MG/ML 20 ML VIAL IV ONE (07:42)
[2020-10-07] MEDS ORDERED: SUCCINYLCHOLINE CHLORIDE 100 MG/5 ML SYR IV ONE (07:42)
[2020-10-07] MEDS ORDERED: MIDAZOLAM 2 MG/2 ML VIAL ONE (07:42)
[2020-10-07] MEDS ORDERED: ROCURONIUM 10 MG/ML (5 ML VIAL) IV ONE (07:42)
[2020-10-07] MEDS ORDERED: GLYCOPYRROLATE 0.2 MG/ML 2 ML VIAL ONE (07:42)
[2020-10-07] MEDS ORDERED: NEOSTIGMINE 1 MG/ML 10 ML VIAL ONE (07:42)
[2020-10-07] MEDS ORDERED: HEPARIN SODIUM,PORCINE/PF 5,000 UNIT/0.5 ML SYRINGE SQ PRN (07:50)
--- NOTE | 2020-10-07 07:50 | P.GSHP ---
History of Present Illness H&P Date: 10/07/20 CHIEF COMPLAINT: Paraesophageal hiatal hernia with gastroesophageal reflux disease. HISTORY OF PRESENT ILLNESS: The patient is a 45-year-old female who presents with paraesophageal hiatal hernia. She has completed upper endoscopy workup. Now she presents for surgical intervention. PAST MEDICAL HISTORY: Please see list. PAST SURGICAL HISTORY: Please see list. MEDICATIONS: Please see list. ALLERGIES: Please see list. SOCIAL HISTORY: No illicit drug use FAMILY HISTORY: No reports of Crohn disease or ulcerative colitis. REVIEW OF ORGAN SYSTEMS: CONSTITUTIONAL: No reports of fevers or chills. GI: Denies any blood in stools or constipation. PHYSICAL EXAM: VITAL SIGNS: Stable GENERAL: Well-developed pleasant and in no acute distress. HEENT: No scleral icterus. Extraocular movements grossly intact. Moist buccal mucosa. NECK: Supple without lymphadenopathy. CHEST: Unlabored respirations. Equal bilateral excursions. CARDIOVASCULAR: Regular rate and rhythm. Distal 2+ pulses. ABDOMEN: Soft, nondistended. No peritoneal signs. MUSCULOSKELETAL: No clubbing, cyanosis, or edema. SKIN: Well-perfused. Good skin turgor. ASSESSMENT: 1. Diaphragmatic paraesophageal hiatal hernia with severe gastroesophageal reflux disease. PLAN: 1. Recommend proceeding with a robotic paraesophageal hiatal hernia with possible mesh. 2. Benefits and risks of surgical intervention was discussed including possibility of open technique. 3. Inpatient hospitalization recommended of 2 nights 4. DVT prophylaxis. 5. Antibiotic prophylaxis. 6. She has also completed a very low caloric high-protein diet to address underlying hepatomegaly. Past Medical History Past Medical History: GERD/Reflux, Hypertension, Osteoarthritis (OA) Additional Past Medical History / Comment(s): chronic neck and shoulder pain History of Any Multi-Drug Resistant Organisms: None Reported Past Surgical History: Bariatric Surgery, Section, Orthopedic Surgery, Tonsillectomy Additional Past Surgical History / Comment(s): lap band 2006, GASTRIC BYPASS- 12/2017, neck sx X2 - fusion, then rods placed, left shoulder, rt ankle/ metal is now out, rt hand, knee arthroscopy. EGD w/ dilation 01/10/19 Past Anesthesia/Blood Transfusion Reactions: Postoperative Nausea & Vomiting (PONV) Additional Past Anesthesia/Blood Transfusion Reaction / Comment(s): denies Smoking Status: Former smoker - Past Family History Father Family Medical History: No Reported History Mother Family Medical History: Coronary Artery Disease (CAD) Additional Family Medical History / Comment(s): hx blood clots in heart, has stents Medications and Allergies Home Medications Medication Instructions Recorded Confirmed Type Amitriptyline HCl [Elavil] 10 mg PO HS 12/28/17 10/07/20 History oxyCODONE HCL/ACETAMINOPHEN 1 tab PO DAILY PRN 12/28/17 10/07/20 History [Percocet 10-325 mg] tiZANidine HCL [Zanaflex] 6 mg PO HS PRN 12/28/17 10/07/20 History Multivitamins, Thera [Multivitamin 1 tab PO DAILY 06/02/19 10/07/20 History (formulary)] Ibuprofen [Motrin] 800 mg PO Q8H PRN 10/01/20 10/07/20 History Omeprazole 40 mg PO QAM 10/01/20 10/07/20 History Sertraline HCl [Zoloft] 100 mg PO HS 10/01/20 10/07/20 History Verapamil HCl [Verapamil ER] 240 mg PO HS 10/01/20 10/07/20 History Allergies Allergy/AdvReac Type Severity Reaction Status Date / Time No Known Allergies Allergy Verified 10/01/20 09:39 Surgical - Exam Vital Signs Temp Pulse Resp BP Pulse Ox 97.1 F L 86 16 134/84 100 10/07/20 06:24 10/07/20 06:24 10/07/20 06:24 10/07/20 06:24 10/07/20 06:24
[2020-10-07] MEDS ORDERED: LIDOCAINE 2%-EPI 1:100,000 20 ML VIAL SQ ONE (07:59)
[2020-10-07] MEDS ORDERED: LACTATED RINGERS 1,000 ML IV ONE ×4 (08:15→15:07)
[2020-10-07] MEDS ORDERED: oxyCODONE-APAP 10-325MG 1 EACH TAB PO PRN (11:47)
[2020-10-07] MEDS ORDERED: tiZANidine 4 MG TAB PO PRN (11:47)
[2020-10-07] MEDS ORDERED: NALOXONE 0.4 MG/ML 1 ML VIAL IV PRN (11:48)
[2020-10-07] MEDS ORDERED: diphenhydrAMINE 50 MG/ML 1 ML VIAL IVP PRN (11:48)
--- NOTE | 2020-10-07 12:08 | P.OP ---
Date of Procedure: 10/07/20 Description of Procedure: SURGEON: MERISSA WORKMAN MD PREOPERATIVE DIAGNOSES: 1. Paraesophageal hiatal hernia, midline, incarcerated 2. Gastroesophageal reflux disease. 3. History of previous adjustable gastric band with complications 4. History of conversion of adjustable gastric band to gastric bypass 5. Hypertensive heart disease with cardiomyopathy 6. Morbid obesity due to excess calories, BMI 36.0 7. Chronic pain syndrome 8. Depressive disorder 9. Generalized anxiety disorder 10. History of postop nausea and vomiting 11. Panniculitis 12. Generalized osteoarthritis including neck 13. Status post neck fusion POSTOPERATIVE DIAGNOSES: 1. Paraesophageal hiatal hernia, midline, incarcerated 2. Gastroesophageal reflux disease. 3. History of previous adjustable gastric band with complications 4. History of conversion of adjustable gastric band to gastric bypass 5. Hypertensive heart disease with cardiomyopathy 6. Morbid obesity due to excess calories, BMI 36.0 7. Chronic pain syndrome 8. Depressive disorder 9. Generalized anxiety disorder 10. History of postop nausea and vomiting 11. Panniculitis 12. Generalized osteoarthritis including neck 13. Status post neck fusion 14. Mediastinal mass with incarceration 15. Severe peritoneal adhesions epigastrium, perigastric 16. Chronic gastritis OPERATION: 1. Robotic-assisted da Alex Xi laparoscopic extensive lysis of adhesions over 2 hours for perigastric, perihepatic adhesions 2. Robotic-assisted da Alex Xi laparoscopic reduction and repair of incarcerated paraesophageal hiatal hernia, 5 x 5 cm, with Tatum Biopatch A 8 x 8 cm. 3. Robotic-assisted da Alex Xi laparoscopic reduction and excision of mediastinal tumor over 3 cm 4. Intraoperative esophagogastroduodenoscopy Implants: Tatum Biopatch A 8 x 8 cm Anesthesia: GETA, local Estimated Blood Loss (ml): 5 Pathology: none sent Condition: stable Disposition: floor Operative Findings: 1. Incarcerated paraesophageal hiatal hernia, 5 x 5 cm 2. Severe peritoneal perigastric, perihepatic adhesions with incarcerated paraesophageal hiatal hernia with obstruction, type III 3. Residual gastric prolapse from prior been identified 4. Intrathoracic hernia sac causing incarceration of stomach 5. More than 30% of stomach incarcerated into chest reduced into abdominal cavity 6. GE junction appeared to 35 cm from the incisors with diaphragmatic hiatus 7. 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 She had persistent epigastric symptoms including reflux. She comes in with epigastric abdominal pain including gastroesophageal reflux and a symptomatic diaphragmatic hiatal hernia. Preoperative workup including upper endoscopy demonstrated a large incarcerated hiatal hernia and her gastric bypass. Given the severity of her symptoms, surgical intervention was offered. Benefits and risks including bleeding, infection, recurrence, dysphagia, injury to the esophagus, and injury to stomach, injury to the lung, need for further surgery was described at length. Informed consent was obtained. DESCRIPTION: The patient was brought into the operating room and placed in supine position. Preoperatively she had received heparin subcutaneously for DVT prophylaxis. After general induction, the abdomen was prepped and draped in standard sterile fashion. Ioban draping was placed along the abdomen. A timeout protocol was confirmed with the surgical team, for which the patient's name, procedure to be performed including DVT prophylaxis with bilateral SCDs, and preoperative antibiotics were also confirmed. Robotic da Alex Xi system was prepped and primed. At 13 cm from the xiphoid to just below the umbilicus, proposed port sites were marked with indelible marker along the left axillary line, left mid-clavicular line with each ports were marked 10 cm from each other. A 5 mm 0 degrees laparoscopic trocar entry was performed along the left upper quadrant. The abdomen was insufflated to 15 mmHg pressure she tolerated well. Diagnostic laparoscopy demonstrated no injury to bowel, viscera, or mesentery. No injury had occurred to the small bowel or viscera. Dense adhesions of her small bowel to anterior abdominal wall and epigastrium including perihepatic and perigastric adhesions were identified. Along the hiatus, moderate perigastric adhesions were found from prior gastric bypass include an band surgery. Next, one 8 mm robotic port was placed along the right upper abdomen. An 8-mm port was were placed along the left lateral abdominal wall. The camera 8-mm port was maintained along the epigastrium. A 12 mm port was placed along the left upper abdominal wall after exchanging the 5 mm port. Please note that the ports were placed at least 20 cm away from the target anatomy. Care was taken to check that each robotic arm were safely away from collision with the bed or the patient. At the epigastrium, a medium sized Shabana liver retractor was placed under direct visualization with the Iron [employer] Editor placed under the right shoulder of the patient. The additional third robotic arm was used. The patient was repositioned in reverse Trendelenburg position at 21-degrees after lowering the bed. The robot was docked above the left side of the patient. Using a grasper for arm 3, a grasper for arm 1, including vessel sealer for arm 4, the robotic system was docked and primed as described. Instruments were interchanged by the customer assistant. I had sat at the console. Moderate inferior perigastric including perihepatic adhesions were addressed using vessel sealer including hook cautery cautiously. Extensive lysis of adhesions over 1 hour was performed prior to placement of the liver retractor. The phrenoesophageal ligament had moderate scarring where the distal esophagus was mobilized circumferentially. Care was taken to avoid any injury to the stomach and esophagus. The hiatal hernia sac was incarcerated into the mediastinum and divided to allow complete mobilization and freeing of the distal esophagus into the abdominal cavity. Moderately dilated gastric cardia was found consistent with prior gastric band prolapse. Care was taken to avoid any gastrotomy to the incarcerated upper pole of the stomach. Extensive lysis of adhesions went more than another 1 hour was used for extended dissection of the adherent stomach high into the mediastinum. The hernia sac was divided to release mobility of the esophagus. Dissection went to the mid esophagus. The measured defect was consistent with 5 cm axial length and 5 cm in width. Intra- abdominal length of over 4 cm was obtained. Once the hiatus and crura was dissected, nonabsorbable 2-0 VLOC suture was placed as a running suture to re-approximate the diaphragmatic hiatus posteriorly. To buttress the repair, a Tatum Biopatch A was prepared along the back table and cut to reinforce the repair as an underlay. The mesh was placed along the crural repair posteriorly then cut in half and tagged using horizontal mattress sutures using nonabsorbable 2-0 VLOC. I went to the head of the bed to perform intraoperative esophagogastroduodenos copy which was used during the case. An Olympus gastroscope was passed through posterior oropharynx, where the GE junction was found distal to the diaphragmatic hiatus. The stomach was entered. Chronic gastritis was found. No injury to the gastric pouch or distal esophagus was found. The gastric pouch distance was from 35 cm from the incisors to 45 cm from the incisors. No active gastric ulcers were identified. The stomach had been desufflated. This concluded the endoscopic portion of the case. The robot was undocked from the patient. I re-scrubbed into the case. All instruments and pneumoperitoneum were evacuated from the abdominal cavity. Incisions were reapproximated using 4-0 Monocryl in an interrupted subcuticular fashion. All incisions were cleaned using dilute hydrogen peroxide. Liquid glue was applied to the skin. Local anesthetic was infiltrated in all wounds for postop analgesia. Multiple intra-abdominal films were obtained. At the end of the procedure, needle, sponge, and instrument count was verified correct by the reuse technician. The patient had tolerated the procedure well and was taken to the postanesthesia unit in stable condition. Intraoperative films were reviewed with the patient's family who were pleased with the level of care. Console time 200 minutes COMPLEXITY: Increased complexity of the case due to severe perihepatic including perigastric adhesions requiring over 2 hours of extensive lysis of adhesions to avoid gastrotomy or injury to the esophagus.
[2020-10-07] MEDS: ACETAMINOPHEN IV (For NPO) 1,000 MG in EMPTY BAG 1 BAG IVPB SCH ×3 (12:31→19:56)
[2020-10-07] MEDS: HYDROmorphone 0.5 MG/0.5 ML SYRINGE IVP PRN ×4 (14:51→16:08)
[2020-10-07] MEDS: ALBUTEROL NEBULIZED 2.5 MG/3 ML INHALATION SCH ×2 (15:40→19:37)
[2020-10-07] MEDS ORDERED: ONDANSETRON 4 MG/2 ML VIAL IVP ONE (16:12)
[2020-10-07] MEDS ORDERED: DEXAMETHASONE SOD PHOSPHATE 10 MG/ML 1 ML VIAL IV PRN (17:38)
[2020-10-07] MEDS ORDERED: SODIUM CHLORIDE 0.9% 1,000 ML IV ONE (17:38)
[2020-10-07] MEDS ORDERED: TRIMETHOBENZAMIDE 100 MG/ML 2 ML VIAL IM PRN (17:39)
[2020-10-07] MEDS: HYDROmorphone 1 MG/ML 1 ML SYRINGE IVP PRN ×2 (17:42→22:47)
[2020-10-07] MEDS ORDERED: SCOPOLAMINE 1.5MG/72HR PATCH TRANSDERM SCH (18:00)
--- NOTE | 2020-10-07 18:10 | P.PN ---
Progress Note - Text Progress Note Date: 10/07/20 Postoperative findings reviewed. Bariatric diet advised postop. She is tolerating ice chips. Pain well-controlled. Minimal nausea.
[2020-10-07 18:53] VITALS: RESP 16
[2020-10-07] MEDS: HYOSCYAMINE ORAL DROPS 1.875 MG/15 ML BOTTLE PO SCH (19:52)
[2020-10-07] MEDS: 0.9% NACL WITH KCL 20 MEQ/L 1,000 ML IV SCH (19:53)
[2020-10-07] MEDS: SIMETHICONE 40 MG/0.6 ML DROPS 2,000 MG/30 ML BOTTLE PO SCH (19:56)
[2020-10-07] MEDS: DEXAMETHASONE SOD PHOSPHATE 4 MG/ML 1 ML VIAL IV SCH (19:56)
[2020-10-07] MEDS ORDERED: SERTRALINE 100 MG TAB PO SCH (21:00)
[2020-10-07] MEDS ORDERED: AMITRIPTYLINE HCL 10 MG TAB PO SCH (21:00)
[2020-10-07] MEDS ORDERED: VERAPAMIL SR 240 MG TABLET.ER PO SCH (21:00)
[2020-10-08] MEDS: HYOSCYAMINE ORAL DROPS 1.875 MG/15 ML BOTTLE PO SCH ×3 (01:03→11:47)
[2020-10-08] MEDS: SIMETHICONE 40 MG/0.6 ML DROPS 2,000 MG/30 ML BOTTLE PO SCH ×3 (01:04→11:50)
[2020-10-08] MEDS: ACETAMINOPHEN IV (For NPO) 1,000 MG in EMPTY BAG 1 BAG IVPB SCH ×2 (01:04→08:55)
[2020-10-08] MEDS: DEXAMETHASONE SOD PHOSPHATE 4 MG/ML 1 ML VIAL IV SCH ×3 (01:05→11:46)
[2020-10-08] MEDS: LACTATED RINGERS 1,000 ML IV SCH (03:37)
[2020-10-08] MEDS: 0.9% NACL WITH KCL 20 MEQ/L 1,000 ML IV SCH ×2 (03:38→09:03)
[2020-10-08 05:03] LABS: Basophils % (A) 0 %; Eosinophils # (A) 0.1 k/uL (0-0.7); Eosinophils % (A) 1 %; HCT 33.5 % (34.0-46.0); HGB 10.9 gm/dL (11.4-16.0); Lymphocytes # (A) 0.9 k/uL (1.0-4.8); Lymphocytes % (A) 8 %; MCH 27.6 pg (25.0-35.0); MCHC 32.5 g/dL (31.0-37.0); MCV 84.8 fL (80.0-100.0); Mean Platelet Volume 7.7; Monocytes # (A) 0.1 k/uL (0-1.0); Monocytes % (A) 1 %; Neutrophils # (A) 9.6 k/uL (1.3-7.7); Neutrophils % (A) 90 %; Platelet Count 250 k/uL (150-450); RBC 3.95 m/uL (3.80-5.40); WBC 10.7 k/uL (3.8-10.6)
[2020-10-08] MEDS: ALBUTEROL NEBULIZED 2.5 MG/3 ML INHALATION SCH ×3 (07:26→15:41)
[2020-10-08] MEDS ORDERED: 0.9% NACL WITH KCL 20 MEQ/L 1,000 ML IV SCH (08:00)
[2020-10-08] MEDS: HYDROmorphone 1 MG/ML 1 ML SYRINGE IVP PRN (08:56)
[2020-10-08] MEDS ORDERED: PANTOPRAZOLE 40 MG/10 ML VIAL IV SCH (09:00)
[2020-10-08] MEDS ORDERED: ENOXAPARIN 40 MG/0.4 ML SYRINGE SQ SCH (09:00)
[2020-10-08 09:50] LABS: African American GFR (CKD) 128.5 (60.0-200.0); Anion Gap 7.8 mmol/L (4.00-12.00); Calcium 8.1 mg/dL (8.7-10.3); Carbon Dioxide 23.2 mmol/L (21.6-31.8); Magnesium 1.5 mg/dL (1.5-2.4); Non-African American GFR(CKD) 110.9 (60.0-200.0); Phosphorus 3.2 mg/dL (2.4-5.1); Potassium 4.9 mmol/L (3.5-5.5)
--- NOTE | 2020-10-08 10:08 | FL ---
Single contrast esophagram EXAMINATION TYPE: FL UGI DATE OF EXAM: 10/08/2020 8:50 AM COMPARISON: NONE CLINICAL HISTORY: Status post Calvin fundoplication The patient ingested contrast without difficulty or delay. Noted are changes of Calvin fundoplicatio n. There is no evidence for leak or obstruction. Small amount of residual contrast within the distal esophagus. IMPRESSION: Post-surgical change of Calvin fundoplication without evidence for leak or obstruction.
[2020-10-08 12:17] VITALS: BP 127/69; PULSE 117; TEMP 99
--- NOTE | 2020-10-08 14:13 | P.DS ---
Providers Date of admission: 10/08/20 11:26 Expected date of discharge: 10/08/20 Attending physician: Roberta Duval Primary care physician: Rafat Estrada - Sherly Diagnosis(es) (1) Paraesophageal hernia with obstruction but no gangrene Current Visit: Yes Status: Acute (2) H/O gastric bypass Current Visit: Yes Status: Acute (3) Peritoneal adhesions Current Visit: Yes Status: Acute (4) Chronic pain syndrome Current Visit: Yes Status: Acute (5) Gastroesophageal reflux disease Current Visit: Yes Status: Acute (6) Morbid obesity due to excess calories Current Visit: Yes Status: Acute (7) BMI 36.0-36.9,adult Current Visit: Yes Status: Acute Hospital Course: POSTOPERATIVE DIAGNOSES: 1. Paraesophageal hiatal hernia, midline, incarcerated 2. Gastroesophageal reflux disease. 3. History of previous adjustable gastric band with complications 4. History of conversion of adjustable gastric band to gastric bypass 5. Hypertensive heart disease with cardiomyopathy 6. Morbid obesity due to excess calories, BMI 36.0 7. Chronic pain syndrome 8. Depressive disorder 9. Generalized anxiety disorder 10. History of postop nausea and vomiting 11. Panniculitis 12. Generalized osteoarthritis including neck 13. Status post neck fusion 14. Mediastinal mass with incarceration 15. Severe peritoneal adhesions epigastrium, perigastric 16. Chronic gastritis COURSE: The patient is a 45-year-old female with incarcerated hiatal hernia including history of gastric bypass. Intraoperatively, patient had severe adhesions requiring additional care as well as incarcerated paraesophageal hiatal hernia. Postoperatively, she was tolerating diet. Gastroesophageal reflux disease had resolved. Esophagram was negative for leak or obstruction. Prior to discharge she was tolerating diet. Follow-up in the bariatric center was described. Procedures: OPERATION: 1. Robotic-assisted da Alex Xi laparoscopic extensive lysis of adhesions over 2 hours for perigastric, perihepatic adhesions 2. Robotic-assisted da Alex Xi laparoscopic reduction and repair of incarcerated paraesophageal hiatal hernia, 5 x 5 cm, with [place] Biopatch A 8 x 8 cm. 3. Robotic-assisted da Alex Xi laparoscopic reduction and excision of mediastinal tumor over 3 cm 4. Intraoperative esophagogastroduodenoscopy Implants: [place] [employer]atch A 8 x 8 cm Anesthesia: GETA, local Estimated Blood Loss (ml): 5 Pathology: none sent Condition: stable Disposition: floor Operative Findings: 1. Incarcerated paraesophageal hiatal hernia, 5 x 5 cm 2. Severe peritoneal perigastric, perihepatic adhesions with incarcerated paraesophageal hiatal hernia with obstruction, type III 3. Residual gastric prolapse from prior been identified 4. Intrathoracic hernia sac causing incarceration of stomach 5. More than 30% of stomach incarcerated into chest reduced into abdominal cavity 6. GE junction appeared to 35 cm from the incisors with diaphragmatic hiatus 7. 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 Patient Condition at Discharge: Good Plan - Discharge Summary Discharge Rx Participant: Yes New Discharge Prescriptions: New Acetaminophen Oral Susp [Tylenol Oral Susp] 500 mg PO Q4-6H PRN #400 ml PRN Reason: Pain Simethicone [Gas-X] 125 mg PO AC-TID PRN #20 capsule PRN Reason: Pain Continue tiZANidine HCL [Zanaflex] 6 mg PO HS PRN PRN Reason: Insomnia Amitriptyline HCl [Elavil] 10 mg PO HS oxyCODONE HCL/ACETAMINOPHEN [Percocet 10-325 mg] 1 tab PO DAILY PRN PRN Reason: Pain Multivitamins, Thera [Multivitamin (formulary)] 1 tab PO DAILY Sertraline HCl [Zoloft] 100 mg PO HS Verapamil HCl [Verapamil ER] 240 mg PO HS Discontinued Ibuprofen [Motrin] 800 mg PO Q8H PRN PRN Reason: Pain Omeprazole 40 mg PO QAM Discharge Medication List Amitriptyline HCl [Elavil] 10 mg PO HS 12/28/17 [History] oxyCODONE HCL/ACETAMINOPHEN [Percocet 10-325 mg] 1 tab PO DAILY PRN 12/28/17 [History] tiZANidine HCL [Zanaflex] 6 mg PO HS PRN 12/28/17 [History] Multivitamins, Thera [Multivitamin (formulary)] 1 tab PO DAILY 06/02/19 [History] Sertraline HCl [Zoloft] 100 mg PO HS 10/01/20 [History] Verapamil HCl [Verapamil ER] 240 mg PO HS 10/01/20 [History] Acetaminophen Oral Susp [Tylenol Oral Susp] 500 mg PO Q4-6H PRN #400 ml 10/08/20 [Rx] Simethicone [Gas-X] 125 mg PO AC-TID PRN #20 capsule 10/08/20 [Rx] Follow up [facility]ment[facility]Ref[facility] [place] [facility] [place] [facility]13[facility]20 3:30 pm Patient Instructions/Handouts: Hiatal Hernia (DC), Laparoscopic Hiatal Hernia Repair (DC) Activity/Diet/Wound Care/Special Instructions: Liquid diet only for 2 weeks until October 21 No lifting over 4 pounds in 4 weeks, November 07September shower No soaking in bath tubs for 2 weeks, October 21 Please notify your surgeon if you develop nausea and vomiting including new onset of abdominal pain. Please ambulate at all times. Use Simethicone, Gas-X, Tylenol scheduled for the next 24-48 hours for best pain relief. Use ice along incisions for the today to prevent swelling. Please open, cut, crush pills larger than the size of a tic tack No carbonated beverages. No straws. Do not remove scopolamine patch for 3 days, if present Discharge Disposition: HOME SELF-CARE
[2020-10-08 14:14] VITALS: BMI 35.9
[2020-10-09] MEDS ORDERED: bisacodyL 5 MG TABLET.DR PO PRN (08:00)
== END 2020-10-08 15:55 | disposition home or self-care (01) ==
LOC: OR 05:59 → 5NMEDONC 11:49 → OR 10-08 11:26
PROVIDERS: ADMIT Surgery Plastic and Reconstructive Surgery; ATTEND Surgery Plastic and Reconstructive Surgery
DX: K44.0 Diaphragmatic hernia with obstruction, without gangrene (principal); Z98.84 Bariatric surgery status; K66.0 Peritoneal adhesions (postprocedural) (postinfection); G89.4 Chronic pain syndrome; K21.9 Gastro-esophageal reflux disease without esophagitis; E66.01 Morbid (severe) obesity due to excess calories; Z68.36 Body mass index [BMI] 36.0-36.9, adult; R11.2 Nausea with vomiting, unspecified; D17.9 Benign lipomatous neoplasm, unspecified; K29.50 Unspecified chronic gastritis without bleeding; I11.9 Hypertensive heart disease without heart failure; M25.519 Pain in unspecified shoulder; M54.2 Cervicalgia; F32.9 Major depressive disorder, single episode, unspecified; M79.3 Panniculitis, unspecified; F41.1 Generalized anxiety disorder; M15.9 Polyosteoarthritis, unspecified; I42.9 Cardiomyopathy, unspecified; R22.2 Localized swelling, mass and lump, trunk; Z20.822 Contact with and (suspected) exposure to COVID-19; Z90.710 Acquired absence of both cervix and uterus; Z98.1 Arthrodesis status; Z87.891 Personal history of nicotine dependence; Z79.899 Other long term (current) drug therapy; Z82.49 Family history of ischemic heart disease and other diseases of the circulatory system
CPT/HCPCS: 43235; 43282; 49329; S2900; 74240; 80051; 81025; 82310; 82565; 83735; 84100; 84520; 85025; 87635; 88304; 94640

== ENCOUNTER → 2020-10-13 | Outpatient (CLI) | payer BC ==
--- NOTE | 2020-10-13 16:07 | P.PN ---
Subjective Progress Note Date: 10/13/20 DATE OF SERVICE: 10/13/2020 CHIEF COMPLAINT: Status post gastric bypass HISTORY OF PRESENT ILLNESS: Shameka Murguia is a 45-year-old female status post adjustable gastric band to conversion to gastric bypass, November 2017. She is 3 years out. She is now status post hiatal hernia repair, 10/08/20. She is POD 5. She reports resolved gastroesophageal reflux disease. She reports finally feeling full. She is doing well. At height of 5 feet 4 inches, her ideal body weight is 144 pounds. Highest weight 244 pounds, BMI 42.0. Her lowest weight was 155 pounds. She comes in 217 pounds from 204 pounds, 1 year ago. She gained 13 pounds in 1 year. Her body mass index is 37.2. She is 73 pounds overweight. Lifetime weight loss of 27 pounds. Percent lifetime weight loss, 27%. PHYSICAL EXAM: VITAL SIGNS: Height 5 foot 4 inches, weight 217 pounds. BMI 37.2 Vital Signs Temp 98.7 F 10/13/20 15:18 Pulse 111 H 10/13/20 15:18 Resp BP 127/84 10/13/20 15:18 Pulse Ox GENERAL: Well-developed in no acute distress. HEENT: No scleral icterus. Extraocular movements grossly intact. Hears conversational speech. No nasal drainage. NECK: Supple without lymphadenopathy. CHEST: Nonlabored respirations with equal bilateral excursions. CARDIOVASCULAR: Tachycardic. Distal 2+ pulses. ABDOMEN: Incisions clean, dry and intact MUSCULOSKELETAL: No clubbing, cyanosis. NEURO: No focal or lateralizing signs. Cranial nerves 2 through 12 grossly within normal limits. PSYCH: Appropriate affect. Alert and oriented to person, place and time. SKIN: Good skin turgor. Well perfused. ASSESSMENT: 1. Morbid obesity due to excess calories 2. Body mass index of 35.2 up to 37.2 3. Gastroesophageal reflux disease 4. Osteoarthritis of the lower back. 5. Hypertensive heart disease. 6. Depressive disorder 7. Diaphragmatic hiatal hernia 8. Complications of bariatric procedure, adjustable gastric band 9. History of gastrojejunal ulcer 10. Status post hiatal hernia repair PLAN: 1. Recommend protein intake of 75 grams daily for weight loss plan. 2. Follow up yearly.
[2020-10-14 12:54] VITALS: BP 127/84; PULSE 111; TEMP 98.7; BMI 37.2
== END ==
LOC: BARWHC3 15:18
PROVIDERS: ATTEND Surgery Plastic and Reconstructive Surgery
DX: E66.01 Morbid (severe) obesity due to excess calories (principal); K21.9 Gastro-esophageal reflux disease without esophagitis; I11.9 Hypertensive heart disease without heart failure; F32.9 Major depressive disorder, single episode, unspecified; K44.9 Diaphragmatic hernia without obstruction or gangrene; M47.9 Spondylosis, unspecified; K95.89 Other complications of other bariatric procedure; Z98.890 Other specified postprocedural states; Z87.19 Personal history of other diseases of the digestive system; Z68.37 Body mass index [BMI] 37.0-37.9, adult; Z87.891 Personal history of nicotine dependence
CPT/HCPCS: 99211

== ENCOUNTER → 2021-06-17 | Outpatient (CLI) | payer BC ==
[2021-06-17 12:58] LABS: INR 0.9 (<1.2); Partial Thromboplastin Time 22.8 sec (22.0-30.0); Prothrombin Time 9.8 sec (9.0-12.0)
[2021-06-17 18:05] LABS: HCT 37.9 % (37.2-46.3); HGB 11.7 g/dL (12.0-15.0); MCHC 30.9 g/dL (32.0-37.0); MCV 87.3 fL (80.0-97.0); Mean Platelet Volume 10.1 fL (9.5-12.2); Platelet Count 344 X 10*3/uL (140-440); RBC 4.34 X 10*6/uL (4.10-5.20); RDW 13.2 % (11.5-14.5); WBC 8.75 X 10*3/uL (4.50-10.00)
[2021-06-17 18:27] LABS: % Iron Saturation 8.05 (12.00-45.00); ALT 18 U/L (8-44); AST 16 U/L (13-35); African American GFR (CKD) 103.2 (60.0-200.0); Albumin 4.3 g/dL (3.8-4.9); Albumin/Globulin Ratio 1.39 (1.60-3.17); Alkaline Phosphatase 82 U/L (41-126); BUN/Creat Ratio 13.13 Ratio (12.00-20.00); Blood Urea Nitrogen 10.5 mg/dL (9.0-27.0); Calcium 9.2 mg/dL (8.7-10.3); Carbon Dioxide 20.4 mmol/L (20.0-27.5); Chloride 103 mmol/L (96-109); Ferritin 10.3 ng/mL (10.0-291.0); Globulin 3.1 g/dL (1.6-3.3); Glucose 71 mg/dL (70-110); Iron 42 ug/dL (50-170); Magnesium 1.9 mg/dL (1.5-2.4); Phosphorus 3.4 mg/dL (2.4-5.1); Potassium 4.4 mmol/L (3.5-5.5); Sodium 137 mmol/L (135-145); Total Iron Binding Capacity 526 ug/dL (228-460); Total Protein 7.4 g/dL (6.2-8.2)
[2021-06-17 19:44] LABS: Chol/HDL Ratio 3.56 Ratio; LDL Cholesterol,Calculated 98.1 mg/dL (0.0-131.0); Prealbumin 25.8 mg/dL (18.0-42.0)
== END | disposition home or self-care (01) ==
LOC: LABWHC1 10:23
PROVIDERS: ATTEND Surgery Plastic and Reconstructive Surgery
DX: D50.8 Other iron deficiency anemias (principal); E66.01 Morbid (severe) obesity due to excess calories; E89.1 Postprocedural hypoinsulinemia; E44.0 Moderate protein-calorie malnutrition; E55.9 Vitamin D deficiency, unspecified; K74.1 Hepatic sclerosis; K50.90 Crohn's disease, unspecified, without complications; N19 Unspecified kidney failure
CPT/HCPCS: 36415; 80053; 80061; 82306; 82525; 82607; 82728; 82746; 83036; 83540; 83550; 83735; 83970; 84100; 84134; 84255; 84425; 84443; 84590; 84630; 85027; 85610; 85730

== ENCOUNTER → 2021-06-29 | Outpatient (CLI) | payer BC ==
[2021-06-29 15:02] VITALS: BP 145/96; PULSE 118; RESP 16; TEMP 99.3; BMI 38.2
--- NOTE | 2021-06-29 15:25 | P.HPBAR ---
Bariatric H&P - History & Physicial H&P Date: 06/29/21 History & Physicial: Visit/CC: pre-surg Patient initial contact: Initial weight: 117.934 kg Initial weight in pounds: 260.00 Height: 5 ft 4 in Initial BMI: 44.6 Last weight: Current weight: 101.151 kg Current weight in pounds: 223.00 Current BMI: 38.2 Sanders body weight (based on NIH guidelines): 54.431 kg Excess body weight loss: 26.4% The patient is a 46 year-old F who presents for Bariatric Assessment. DATE: 06/29/2021 CHIEF COMPLAINT: Status post gastric bypass HISTORY OF PRESENT ILLNESS: Shameka Murguia is a 46-year-old female from adjustable gastric band to conversion to gastric bypass, November 2017. She is 4 years out. She comes in with troubles with chronic gastrojejunal ulcers. She has large history of large gastric spouch. She has a problem with portion control from her previous gastric band. She comes in for surgical management of her chronic gastric ulcers. At height of 5 feet 4 inches, her ideal body weight is 144 pounds. Highest weight 244 pounds, BMI 42.0. Her lowest weight was 155 pounds. She comes in 223 pounds from 216 pounds, 4 months ago. She has gained 8 pounds in 4 months. Her body mass index is 38.3. She is 79 pounds overweight. Lifetime weight loss of 21 pounds. Percent excess weight loss of 21%. PAST MEDICAL HISTORY: 1. Morbid obesity due to excess calories 2. Body mass index of 42.0 3. Gastroesophageal reflux disease 4. Osteoarthritis of the lower back. 5. Hypertensive heart disease. 6. Depressive disorder 7. Diabetes type II PAST SURGICAL HISTORY: 1. Tonsillectomy 2. Adjustable gastric band with removal 3. Gastric bypass 4. Upper endoscopy 5. Hiatal hernia repair HOME MEDICATIONS: Home Medications Medication Instructions Recorded Confirmed Amitriptyline HCl [Elavil] 10 mg PO HS 12/28/17 07/20/21 oxyCODONE HCL/ACETAMINOPHEN 1 tab PO DAILY PRN 12/28/17 07/20/21 [Percocet 10-325 mg] tiZANidine HCL [Zanaflex] 6 mg PO HS PRN 12/28/17 07/20/21 Sertraline HCl [Zoloft] 100 mg PO HS 10/01/20 07/20/21 Verapamil HCl [Verapamil ER] 240 mg PO HS 10/01/20 07/20/21 metFORMIN HCL [Glucophage] 500 mg PO DAILY 03/02/21 07/20/21 Gabapentin [Neurontin] 300 mg PO TID PRN 06/29/21 07/20/21 Imitrex (Unknown Dose) 1 tab PO DIRECTED PRN 07/07/21 07/20/21 Metoprolol Tartrate [Lopressor] 25 mg PO DAILY 07/20/21 07/20/21 Previous Rx's Medication Instructions Recorded Acetaminophen Tab [Tylenol Tab] 1,000 mg PO Q6HR PRN #30 tablet 07/11/21 Omeprazole [PriLOSEC] 40 mg PO DAILY #30 cap 07/11/21 Ondansetron Odt [Zofran Odt] 4 mg PO Q8HR PRN #9 tab 07/11/21 Simethicone 40 mg/0.6 ml Drops 40 mg PO PCHS PRN #30 ml 07/11/21 [Mylicon Drops] bisacodyL [Dulcolax] 5 mg PO DAILY PRN #10 tab 07/11/21 ALLERGIES: Allergies Allergy/AdvReac Type Severity Reaction Status Date / Time No Known Allergies Allergy Verified 07/11/21 10:19 SOCIAL HISTORY: Past tobacco use. FAMILY HISTORY: No family history of ulcerative colitis disease or Crohn's disease. Family history of morbid obesity. No lupus in the family. No reports of stomach or esophageal cancer. REVIEW OF ORGAN SYSTEMS: CONSTITUTIONAL: At height of 5 feet 4 inches, her ideal body weight is 144 pounds. Highest weight 244 pounds, BMI 42.0. Her lowest weight was 155 pounds. HEENT: Denies any active troubles with vision or hearing. No active troubles with swallowing. ENDOCRINE: No diabetes. No hypothyroidism. CARDIOVASCULAR: No past reports of palpitations or heart attacks or chest pain. RESPIRATORY: No pneumonia or sleep apnea. GASTROINTESTINAL: Denies any bright red blood per rectum. No diarrhea. No constipation. MUSCULOSKELETAL: Has lower back pain and joint pain. NEURO: No headaches. No seizure disorders. PSYCH: Has depression. No suicidal ideation. RHEUMATOLOGIC: No lupus. No rheumatoid arthritis. HEMATOLOGIC: Denies any abnormal bleeding or bruising. No personal history of DVTs. SKIN: No rash. No skin cancer. PHYSICAL EXAM: VITAL SIGNS: Height 5 foot 4 inches, weight 223 pounds. BMI 38.3 Vital Signs Temp 99.3 F 06/29/21 15:00 Pulse 118 H 06/29/21 15:00 Resp 16 06/29/21 15:00 BP 145/96 06/29/21 15:00 Pulse Ox GENERAL: Well-developed in no acute distress. HEENT: No scleral icterus. Extraocular movements grossly intact. Hears conversational speech. No nasal drainage. NECK: Supple without lymphadenopathy. CHEST: Nonlabored respirations with equal bilateral excursions. CARDIOVASCULAR: Tachycardic. Distal 2+ pulses. ABDOMEN: Obese, soft, nontender, nondistended. MUSCULOSKELETAL: No clubbing, cyanosis. NEURO: No focal or lateralizing signs. Cranial nerves 2 through 12 grossly within normal limits. PSYCH: Appropriate affect. Alert and oriented to person, place and time. SKIN: Good skin turgor. Well perfused. LABS: Hgb low 11.7. Hgb A1c 6.3 elevated. Iron low 42. Triglycerides elevated. Vitamin D low. Zinc low ASSESSMENT: 1. Morbid obesity due to excess calories 2. Body mass index of 42.0, initial to 38.3 3. Gastroesophageal reflux disease 4. Osteoarthritis of the lower back. 5. Hypertensive heart disease. 6. Depressive disorder 7. Diaphragmatic hiatal hernia 8. Complications of bariatric procedure, adjustable gastric band 9. History of gastrojejunal ulcer 10. Persistent tachycardia 11. Iron deficiency anemia 12. Hypertriglyceridemia 13. Vitamin D deficiency 14. Zinc deficiency PLAN: 1. She has chronic gastrojejunal ulcers including large gastric pouch. Revision of her gastrojejunostomy described. 2. She has history of severe peritoneal adhesions from prior surgeries. She is elevated risk for complications including strictures and life-threatening leaks described. 3. She has persisitent tachycardia. Recommend cardiac risk assessment. 4. Inpatient hospitalization described. 5. Two week high protein low carb diet described 6. Avoidance of second hand tobacco exposure described. 7. Recommend iron infusion for iron deficiency anemia 8. Recommend Vitamin D 50,000 units weekly 9. Recommend ZInc supplement 50 mg daily Past Medical History Past Medical History: GERD/Reflux, Hypertension, Osteoarthritis (OA) Additional Past Medical History / Comment(s): chronic neck and shoulder pain. 01/2021 - prediabetic (hyperglycemia) diagnosis. History of Any Multi-Drug Resistant Organisms: None Reported Past Surgical History: Bariatric Surgery, Section, Orthopedic Surgery, Tonsillectomy Additional Past Surgical History / Comment(s): lap band 2006, GASTRIC BYPASS- 12/2017, neck sx X2 - fusion, then rods placed, left shoulder, rt ankle/ metal is now out, rt hand, knee arthroscopy. EGD w/ dilation 01/10/19 Past Anesthesia/Blood Transfusion Reactions: Postoperative Nausea & Vomiting (PONV) Additional Past Anesthesia/Blood Transfusion Reaction / Comm: denies Past Psychological History: Anxiety, Depression Smoking Status: Former smoker Past Alcohol Use History: Occasional Additional Past Alcohol Use History / Comment(s): 2012 Quit, smoked 1 pack a week, Past Drug Use History: None Reported Additional Drug Use History / Comment(s): cbd pills occasional use, instructed to hold 24 hrs prior to procedure - Past Family History Father Family Medical History: No Reported History Mother Family Medical History: Coronary Artery Disease (CAD) Additional Family Medical History / Comment(s): hx blood clots in heart, has stents Surgical - Exam Vital Signs Temp Pulse Resp BP 99.3 F 118 H 16 145/96 06/29/21 15:00 06/29/21 15:00 06/29/21 15:00 06/29/21 15:00 Bariatric Checklist Checklist: Plan: Checklist: EGD: 1. Hiatal hernia: 2. H. Pylori: HgbA1c: Vitamin D: Smoking: Former smoker Primary care physician referral: DR. WILLAMS Psychiatry clearance: Cardiology clearance: Sleep study: Diet journal: VTE risk score: VTE risk level: Rehab needs at discharge:
== END ==
LOC: BARWHC3 13:56
PROVIDERS: ATTEND Surgery Plastic and Reconstructive Surgery
DX: E66.01 Morbid (severe) obesity due to excess calories (principal); Z68.38 Body mass index [BMI] 38.0-38.9, adult; K21.9 Gastro-esophageal reflux disease without esophagitis; M47.9 Spondylosis, unspecified; I11.9 Hypertensive heart disease without heart failure; F32.A Depression, unspecified; K44.9 Diaphragmatic hernia without obstruction or gangrene; K95.89 Other complications of other bariatric procedure; R00.0 Tachycardia, unspecified; D50.9 Iron deficiency anemia, unspecified; E78.1 Pure hyperglyceridemia; E55.9 Vitamin D deficiency, unspecified; E60 Dietary zinc deficiency; E11.9 Type 2 diabetes mellitus without complications; M19.90 Unspecified osteoarthritis, unspecified site; F41.9 Anxiety disorder, unspecified; Z87.891 Personal history of nicotine dependence
CPT/HCPCS: 99211

== ENCOUNTER → 2021-07-07 | Outpatient (CLI) | payer BC ==
[2021-07-07 15:34] LABS: Basophils # (A) 0.04 X 10*3/uL (0.00-0.10); Basophils % (A) 0.4 %; Eosinophils # (A) 0.13 X 10*3/uL (0.04-0.35); Eosinophils % (A) 1.4 %; HCT 38.8 % (37.2-46.3); Immature Grans, Automated 1.2 %; Lymphocytes # (A) 2.86 X 10*3/uL (0.90-5.00); Lymphocytes % (A) 30.4 %; MCH 26.8 pg (27.0-32.0); MCHC 30.9 g/dL (32.0-37.0); MCV 86.8 fL (80.0-97.0); Mean Platelet Volume 10.5 fL (9.5-12.2); Monocytes # (A) 0.51 X 10*3/uL (0.20-1.00); Monocytes % (A) 5.4 %; NRBC Per 100 WBC 0 /100 WBCS (0.0-0.0); Neutrophils # (A) 5.76 X 10*3/uL (1.80-7.70); Neutrophils % (A) 61.2 %; Platelet Count 319 X 10*3/uL (140-440); RBC 4.47 X 10*6/uL (4.10-5.20); RDW 13.7 % (11.5-14.5); WBC 9.41 X 10*3/uL (4.50-10.00)
[2021-07-07 17:40] LABS: African American GFR (CKD) 116.6 (60.0-200.0); Albumin 4.2 g/dL (3.8-4.9); Albumin/Globulin Ratio 1.33 (1.60-3.17); Anion Gap 11.9 mmol/L (10.00-18.00); BUN/Creat Ratio 8.67 Ratio (12.00-20.00); Blood Urea Nitrogen 6.3 mg/dL (9.0-27.0); Carbon Dioxide 22.1 mmol/L (20.0-27.5); Globulin 3.2 g/dL (1.6-3.3); Non-African American GFR(CKD) 100.6 (60.0-200.0); Potassium 4.6 mmol/L (3.5-5.5); Total Bilirubin 0.3 mg/dL (0.30-1.20); Total Protein 7.4 g/dL (6.2-8.2)
[2021-07-08 13:09] LABS: Coronavirus SARS CoV-2 Not Detected (Not Detected)
== END | disposition home or self-care (01) ==
LOC: LABPAT 10:01
PROVIDERS: ATTEND Surgery Plastic and Reconstructive Surgery
DX: Z01.812 Encounter for preprocedural laboratory examination (principal); Z20.822 Contact with and (suspected) exposure to COVID-19
CPT/HCPCS: 80053; 85025; U0003; U0005

== ENCOUNTER → 2021-07-08 | Outpatient (CLI) | payer BC | END | disposition home or self-care (01) | LOC: LABPAT 11:04 | PROVIDERS: ATTEND Surgery Plastic and Reconstructive Surgery | DX: Z01.812 Encounter for preprocedural laboratory examination (principal) | CPT/HCPCS: 93005 ==

== ENCOUNTER 2021-07-11 09:28 | Inpatient (IN) | payer BC ==
[~2021-07-11 09:28] MED LIST changes: +CHLORHEXIDINE GLUCONATE 15 ML CUP MUCOUS MEM PRN; +ENOXAPARIN 40 MG/0.4 ML SYRINGE SQ PRN; -HEPARIN SODIUM,PORCINE/PF 5,000 UNIT/0.5 ML SYRINGE SQ PRN; +HYDROmorphone 0.5 MG/0.5 ML SYRINGE IVP PRN; -MIDAZOLAM 2 MG/2 ML VIAL IV PRN; +PANTOPRAZOLE 40 MG/10 ML VIAL IVP PRN; +SCOPOLAMINE 1.5MG/72HR PATCH TRANSDERM ONE
--- NOTE | 2021-07-11 09:34 | P.GSHP ---
History of Present Illness H&P Date: 07/11/21 CHIEF COMPLAINT: Morbid obesity HISTORY OF PRESENT ILLNESS: Shameka Murguia is a 46-year-old female who comes in with multiple bariatric procedures from adjustable gastric band to conversion to gastric bypass, November 2017. She is over 3 years out. She comes in with trouble with weigh loss including history of gastrojejunal ulcer and large gastric pouch. She also comes in with hypertension. Her blood pressure is controlled with two medications. She comes in with new diagnosis of diabetes. She reports lack of restriction. She has history of complications with her band x 2 prior to her gastric bypass secondary to gastric prolapse and slippage. She is looking for revision of her gastric bypass. At height of 5 feet 4 inches, her ideal body weight is 144 pounds. Highest weight 244 pounds, BMI 42.0. Her lowest weight was 155 pounds. She comes in 214 pounds from 204 pounds 1 year ago. She has gained 10 pounds in 1 year. Her body mass index is 36.9. She is 70 pounds overweight. PAST MEDICAL HISTORY: 1. Morbid obesity due to excess calories 2. Body mass index of 42.0, initial 3. Gastroesophageal reflux disease 4. Osteoarthritis of the lower back. 5. Hypertensive heart disease. 6. Depressive disorder PAST SURGICAL HISTORY: 1. Tonsillectomy 2. Adjustable gastric band with removal 3. Gastric bypass 4. Upper endoscopy 5. Hiatal hernia repair HOME MEDICATIONS: Home Medications Medication Instructions Recorded Confirmed Amitriptyline HCl [Elavil] 10 mg PO HS 12/28/17 07/08/21 oxyCODONE HCL/ACETAMINOPHEN 1 tab PO DAILY PRN 12/28/17 07/08/21 [Percocet 10-325 mg] tiZANidine HCL [Zanaflex] 6 mg PO HS PRN 12/28/17 07/08/21 Sertraline HCl [Zoloft] 100 mg PO HS 10/01/20 07/08/21 Verapamil HCl [Verapamil ER] 240 mg PO HS 10/01/20 07/08/21 Omeprazole 20 mg PO DAILY 03/02/21 07/08/21 metFORMIN HCL [Glucophage] 500 mg PO DAILY 03/02/21 07/08/21 Gabapentin [Neurontin] 300 mg PO TID PRN 06/29/21 07/08/21 Ibuprofen [Motrin] 800 mg PO DAILY 07/07/21 07/08/21 Imitrex (Unknown Dose) 1 tab PO DIRECTED PRN 07/07/21 07/08/21 ALLERGIES: Allergies Allergy/AdvReac Type Severity Reaction Status Date / Time No Known Allergies Allergy Verified 07/08/21 12:26 SOCIAL HISTORY: Past tobacco use. FAMILY HISTORY: No family history of ulcerative colitis disease or Crohn's disease. Family history of morbid obesity. No lupus in the family. No reports of stomach or esophageal cancer. REVIEW OF ORGAN SYSTEMS: CONSTITUTIONAL: At height of 5 feet 4 inches, her ideal body weight is 144 pounds. Highest weight 244 pounds, BMI 42.0. Her lowest weight was 155 pounds. HEENT: Denies any active troubles with vision or hearing. No active troubles with swallowing. ENDOCRINE: No diabetes. No hypothyroidism. CARDIOVASCULAR: No past reports of palpitations or heart attacks or chest pain. RESPIRATORY: No pneumonia or sleep apnea. GASTROINTESTINAL: Denies any bright red blood per rectum. No diarrhea. No constipation. MUSCULOSKELETAL: Has lower back pain and joint pain. NEURO: No headaches. No seizure disorders. PSYCH: Has depression. No suicidal ideation. RHEUMATOLOGIC: No lupus. No rheumatoid arthritis. HEMATOLOGIC: Denies any abnormal bleeding or bruising. No personal history of DVTs. SKIN: No rash. No skin cancer. PHYSICAL EXAM: VITAL SIGNS: Height 5 foot 4 inches, weight 214 pounds. BMI 36.9 GENERAL: Well-developed in no acute distress. HEENT: No scleral icterus. Extraocular movements grossly intact. Hears conversational speech. No nasal drainage. NECK: Supple without lymphadenopathy. CHEST: Nonlabored respirations with equal bilateral excursions. CARDIOVASCULAR: Regular rate and regular rhythm. Distal 2+ pulses. ABDOMEN: Obese, soft, nontender, nondistended. MUSCULOSKELETAL: No clubbing, cyanosis. NEURO: No focal or lateralizing signs. Cranial nerves 2 through 12 grossly within normal limits. PSYCH: Appropriate affect. Alert and oriented to person, place and time. SKIN: Good skin turgor. Well perfused. EKG reviewed and abnormal ASSESSMENT: 1. Morbid obesity due to excess calories 2. Body mass index of 36.9 3. Gastroesophageal reflux disease 4. Osteoarthritis of the lower back. 5. Hypertensive heart disease. 6. Depressive disorder 7. Chronic NSAID use 8. Complications of bariatric procedure, adjustable gastric band 9. History of recurrent gastrojejunal ulcer 10. Past tobacco abuse disorder 11. Diabetes type 2 PLAN: 1. Recommend robotic revision of her gastrojejunal anastosis as she reports symptoms of reflux and recurrent ulcers 2. Two-week hypertrophy low-carb diet reviewed 3. Inpatient hospitalization over 2 nights described 4. She is elevated risk for perioperative complications including leak and strictures secondary to pre-existing history of gastric prolapse and complications from her previous adjustable gastric band. Past Medical History Past Medical History: Diabetes Mellitus, GERD/Reflux, Hypertension, Osteoarthritis (OA) Additional Past Medical History / Comment(s): chronic neck and shoulder pain. , migraines. History of Any Multi-Drug Resistant Organisms: None Reported Past Surgical History: Bariatric Surgery, Section, Hernia Repair, Orthopedic Surgery, Tonsillectomy Additional Past Surgical History / Comment(s): lap band 2006, GASTRIC BYPASS- 12/2017, neck sx X2 - fusion with rods., left shoulder, rt ankle & hardware removed., rt handsurgery., knee arthroscopy. EGD w/ dilation ., 09/2020 lysis of adhesions & rrepair of Hiatal Hernia. Past Anesthesia/Blood Transfusion Reactions: Postoperative Nausea & Vomiting (PONV) Additional Past Anesthesia/Blood Transfusion Reaction / Comment(s): no hx of blood transfusion Past Psychological History: Anxiety, Depression Smoking Status: Former smoker Past Alcohol Use History: Occasional Additional Past Alcohol Use History / Comment(s): Quit smoking 2012 ., smoked 1 pack a week, Past Drug Use History: Marijuana Additional Drug Use History / Comment(s): occasional gummies - Past Family History Father Family Medical History: No Reported History Mother Family Medical History: Coronary Artery Disease (CAD) Additional Family Medical History / Comment(s): hx blood clots in heart, has stents Medications and Allergies Home Medications Medication Instructions Recorded Confirmed Type Amitriptyline HCl [Elavil] 10 mg PO HS 12/28/17 07/08/21 History oxyCODONE HCL/ACETAMINOPHEN 1 tab PO DAILY PRN 12/28/17 07/08/21 History [Percocet 10-325 mg] tiZANidine HCL [Zanaflex] 6 mg PO HS PRN 12/28/17 07/08/21 History Sertraline HCl [Zoloft] 100 mg PO HS 10/01/20 07/08/21 History Verapamil HCl [Verapamil ER] 240 mg PO HS 10/01/20 07/08/21 History Omeprazole 20 mg PO DAILY 03/02/21 07/08/21 History metFORMIN HCL [Glucophage] 500 mg PO DAILY 03/02/21 07/08/21 History Gabapentin [Neurontin] 300 mg PO TID PRN 06/29/21 07/08/21 History Ibuprofen [Motrin] 800 mg PO DAILY 07/07/21 07/08/21 History Imitrex (Unknown Dose) 1 tab PO DIRECTED PRN 07/07/21 07/08/21 History Allergies Allergy/AdvReac Type Severity Reaction Status Date / Time No Known Allergies Allergy Verified 07/08/21 12:26
[2021-07-11] MEDS ORDERED: GABAPENTIN 300 MG CAP PO STA (09:36)
[2021-07-11] MEDS ORDERED: ACETAMINOPHEN TAB 500 MG TAB PO STA (09:36)
[2021-07-11] MEDS ORDERED: SCOPOLAMINE 1.5MG/72HR PATCH TRANSDERM STA (09:36)
[2021-07-11 10:29] LABS: Glucose,Whole Blood 112 mg/dL (75-99)
[2021-07-11] MEDS: LACTATED RINGERS 1,000 ML IV SCH (10:40)
[2021-07-11] MEDS ORDERED: GABAPENTIN 300 MG CAP PO ONE (10:46)
[2021-07-11] MEDS ORDERED: ACETAMINOPHEN TAB 500 MG TAB PO ONE (10:46)
[2021-07-11] MEDS ORDERED: DEXAMETHASONE SOD PHOSPHATE 4 MG/ML 1 ML VIAL IVP ONE (10:49)
[2021-07-11] MEDS ORDERED: ONDANSETRON 4 MG/2 ML VIAL IVP ONE (10:49)
[2021-07-11] MEDS ORDERED: MIDAZOLAM 2 MG/2 ML VIAL IVP ONE ×2 (11:14)
[2021-07-11] MEDS ORDERED: ROCURONIUM 10 MG/ML (5 ML VIAL) IV ONE (11:36)
[2021-07-11] MEDS ORDERED: LIDOCAINE 1% INJ 10MG/ML (20 ML MDV) ONE (11:36)
[2021-07-11] MEDS ORDERED: MIDAZOLAM 2 MG/2 ML VIAL ONE (11:36)
[2021-07-11] MEDS ORDERED: NEOSTIGMINE 1 MG/ML 10 ML VIAL ONE (11:36)
[2021-07-11] MEDS ORDERED: fentaNYL (PF) 50 MCG/ML 2 ML AMP ONE (11:36)
[2021-07-11] MEDS ORDERED: GLYCOPYRROLATE 0.2 MG/ML 2 ML VIAL ONE (11:36)
[2021-07-11] MEDS ORDERED: PROPOFOL 10 MG/ML 20 ML VIAL IV ONE (11:36)
[2021-07-11] MEDS ORDERED: SUCCINYLCHOLINE CHLORIDE 100 MG/5 ML SYR IV ONE (11:36)
[2021-07-11] MEDS ORDERED: LABETALOL 5 MG/ML VIAL MDV ONE (11:36)
[2021-07-11] MEDS ORDERED: HYDROmorphone (PF) 1 MG/ML ONE (11:36)
[2021-07-11] MEDS ORDERED: BUPIVACAIN-EPI 0.25%-1:200,000 30 ML VIAL SQ ONE (12:17)
--- NOTE | 2021-07-11 14:06 | P.ANPRN ---
Procedure Note - Anesthesia - Nerve Block Performed Bilateral Erector Spinae Single Time Out Performed: Yes Date of Procedure: 07/11/21 Procedure Start Time: : Procedure Stop Time: Location of Patient: PreOp Indication: Acute Post-Operative Pain, Requested by Surgeon Sedation Type: Sedate with meaningful contact maintained Preparation: Sterile Prep Position: Prone Needle Types: Pajunk Needle Gauge: 21 Ultrasound used to visualize needle placement: Yes Ultrasound used to observe medication spread: Yes Blood Aspirated: No Pain Paresthesia on Injection Noted: No Resistance on Injection: Normal Image Stored and Saved: Yes Events: Uneventful and Well Tolerated (ropi .5% 15cc plus ns10cc given bilaterally at L1)
[2021-07-11] MEDS ORDERED: LACTATED RINGERS 1,000 ML IV ONE ×3 (14:09→16:03)
[2021-07-11] MEDS ORDERED: diphenhydrAMINE 50 MG/ML 1 ML VIAL IVP PRN (17:18)
[2021-07-11] MEDS ORDERED: NALOXONE 0.4 MG/ML 1 ML VIAL IV PRN (17:18)
[2021-07-11 17:25] LABS: Glucose,Whole Blood 169 mg/dL (75-99)
--- NOTE | 2021-07-11 17:49 | P.OP ---
Date of Procedure: 07/11/21 Description of Procedure: SURGEON: MERISSA WORKMAN MD PREOPERATIVE DIAGNOSES: 1. Morbid obesity due to excess calories, BMI 42.0, initial 2. Hypertensive heart disease with cardiomyopathy 3. Diabetes type 2, [id number]-hjvgysnva 4. Chronic pain syndrome 5. Depressive disorder 6. Generalized anxiety disorder 7. History of postop nausea and vomiting 8. Generalized osteoarthritis including neck 9. Status post neck fusion 10. History of severe peritoneal adhesions 11. History of previous adjustable gastric band with complications 12. 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 History of gastrojejunal ulcer POSTOPERATIVE DIAGNOSES: 1. Morbid obesity due to excess calories, BMI 42.0, initial 2. Hypertensive heart disease with cardiomyopathy 3. Diabetes type 2, [id number] 4. Chronic pain syndrome 5. Depressive disorder 6. Generalized anxiety disorder 7. History of postop nausea and vomiting 8. Generalized osteoarthritis including neck 9. Status post neck fusion 10. History of severe peritoneal adhesions 11. History of previous adjustable gastric band with complications 12. 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 History of gastrojejunal ulcer 14. Severe perihepatic, perigastric adhesions OPERATION: 1. Robotic-assisted da Alex Xi laparoscopic extensive lysis of adhesions over 2 hours for perigastric, perihepatic adhesions 2. Robotic-assisted da Alex Xi laparoscopic partial gastrectomy 3. Robotic-assisted da Alex Xi laparoscopic revision of gastrojejunal anastomosis over a Arsh-en-Y gastric bypass 4. Intraoperative esophagogastroduodenoscopy with snare ANESTHESIA: GETA and local ESTIMATED BLOOD LOSS: 20 mL SPECIMENS REMOVED: None. COMPLICATIONS: NONE. Operative Findings: 1. Severe perihepatic and severe gastric adhesions requiring over 2 hours extensive lysis of adhesions 2. Length of gastric pouch 10 cm reduced to 3 cm 3. Gallbladder identified unremarkable. INDICATIONS: Shameka Murguia is a 46-year-old female who comes in with multiple bariatric procedures from adjustable gastric band to conversion to gastric bypass, November 2017. She comes in with trouble with weigh loss including history of gastrojejunal ulcer and large gastric pouch. She has history of complications with her band x 2 prior to her gastric bypass secondary to gastric prolapse and slippage. Due to complications from multiple bariatric procedures, she presents for revision of her gastrojejunal anastomosis. At height of 5 feet 4 inches, her ideal body weight is 144 pounds. Highest weight 244 pounds, BMI 42.0. Her lowest weight was 155 pounds. She comes in 214 pounds from 204 pounds 1 year ago. She has gained 10 pounds in 1 year. Her body mass index is 36.9. She is 70 pounds overweight. Benefits and risks of procedure including the possibility of protein malnutriti on, leaks, gastrojejunal stricture, venous thrombosis, need for further surgery for which she demonstrated understanding. Benefits and risks of the procedure were described at length. Informed consent was obtained. DESCRIPTION: The patient was brought into the operating room theater. She was placed supine. She had received Lovenox subcutaneously for DVT prophylaxis. Additionally she Peridex oral solution as an oral decontaminant was placed per anesthesia. After general induction, the abdomen was prepped and draped in standard sterile fashion. Ioban draping was placed along the abdomen. Gomez catheter was placed A robotic da Alex Xi system was prepped and primed. Incisions were proposed at 13 cm from the xiphoid. Proposed port sites were marked with indelible marker along the anterior axillary line bilaterally, mid clavicular line bilaterally with each port marked 10 cm from each other. The robotic stapler port was marked for the right midclavicular line including along the left midclavicular line. A 5 mm 0 degrees laparoscopic trocar entry was performed along her prior cicatrix at the left abdomen. Due to severe adhesions, a separate incision was made along the left costal margin at the left upper quadrant. The abdomen was insufflated to 15 mmHg pressure, which she tolerated well. Diagnostic laparoscopy demonstrated no injury to bowel, viscera, or mesentery. The liver was rounded with severe perihepatic adhesions including perigastric adhesions. The rest of the small bowel is unremarkable for pathology. An adhesive band along the left upper trocar was identified. An 8 mm camera port was placed left lateral to the umbilicus at the epigastrium, 15 cm distal to the xiphoid. Next, 12-mm robot stapler port was placed along the right mid abdomen. An 12 mm port was exchanged along the left upper quadrant. An 8 mm port was placed on the left lateral abdominal wall under direct visualization Please note that the ports were placed 18 to 20 cm away from the target anatomy of the stomach. Care was taken to check that each robotic arm was safely away from collision with the bed or the patient. At the epigastrium, a medium sized Shabana liver retractor was placed under direct visualization with the [employer] placed under the right shoulder of the patient. The patient was repositioned in reverse Trendelenburg position at 21-degrees after lowering the bed. The robot was docked over the patient. Using grasper for arm 3, a grasper for arm 1, including vessel sealer for arm 4, the robotic system was docked and primed as described. Instruments were interchanged by the assistant account manager including endoscissors, the needle hazmat tanker driver, and stapler. I had sat at the console. Extensive lysis of adhesions using blunt dissection as well as hook cautery and vessel sealer was used to free the anterior surface of the gastric pouch from the left lobe of the liver. Careful meticulous dissection was performed without gastrostomy. Extensive lysis of adhesions over 2-1/2 ounces performed with exposure of the hiatus. No recurrent hiatal hernia was found. The spleen was adherent to the redundant posterior gastric fundus. The retrogastric space was dissected free to allow for division of the stomach. I went to have the bed to perform an upper endoscopy in view of the gastric pouch including anastomosis. The length of the gastric pouch externally and internally was confirmed to 10 cm in length. Moderate posterior redundancy was consistent with her prior gastric prolapse posteriorly. The posterior gastric prolapse was free from surrounding tissues and brought out laterally. Robotic stapler 60 mm black and green staple loads were used to divide the gastric pouch longitudinally. Transversely the gastric pouch was divided above his per anastomosis resulting in a 3 cm gastric pouch. The jejunal limb was tacked to the upper abdominal wall. The patient was then prepared for placement of a Orvil. The patient was Mallampati 2. A 25-mm Orvil was selected. I went to the head of the bed to perform an intraoperative endoscopy. A double snare technique using a [employer] snare was performed. Via the scope, a snare was placed through the anterior surface of the gastric pouch. A gastrotomy was placed using hook cautery from within the abdomen. The snare was delivered through the gastrotomy. The assistant account manager placing another snare via the left upper quadrant trocar. Both snares were opened. The intra-abdominal snare was brought out through the mouth. The Orvil was secured to the intra-abdominal snare. The Orvil tubing was navigated into the gastric pouch and brought out through the left inferior lateral port. I re-scrubbed into the case. The robotic arms were temporarily undocked. As the Orvil had been placed, the jejunal limb was brought proximally to the upper abdomen. No torsion was found upon the Arsh limb. No tension was identified as the limb was brought along the upper abdomen. The jejunal limb was previously opened using endo- scissors with cautery. The 25-mm EEA stapler was brought through the left anterior lateral port site from the left side. The EEA stapler was brought through the open jejunal limb and its needle was deployed at the antimesenteric border where the anvil were mated for approximately 1 minute upon firing. The stapler was removed after irrigating the shaft of the instrument with warm normal saline. Donuts were found to be intact and on both sides. The da Alex Xi robot arms were then re-docked. I sat at the console. The open jejunal limb including prior gastrojejunal anastomosis were divided using 60 mm blue loads en bloc after releasing any tension from the blind jejunal limb. Reinforcement sutures were placed along the gastrojejunal anastomosis and placed along the 9:00, 12:00 and 3 o'clock position using 3-0 Vicryl. I then went to the head of the bed to perform the esophagogastrojejunoscopy and a leak test. An Olympus gastroscope was passed alongthe posterior oropharynx which was unremarkable for any injury to the vocal cords. The scope was passed down to the proximal portion of the pouch, whereby no active bleeding was encountered. Excellent visualization of the gastrojejunostomy anastomosis, including the Arsh limb was encountered with endoscopic image obtained. The anastomosis was found to be patent without active bleeding. The gastrointes tinal tract was desufflated. No evidence of intraoperative leak was encountered as the gastric pouch and anastomosis were submerged under normal saline solution. The robot was then undocked. I then went back to the bedside of the patient, whereby with coordinated effort of the assistant account manager, irrigation was aspirated from the upper abdominal cavity. Tisseel was placed circumferentially over the anastomosis of the gastrojejunostomy. The fascial defect of the EEA stapler was closed using Carlos Eckert and 0 Vicryl after dividing an adhesive band of the left upper quadrant using scissors. All instruments and pneumoperitoneum were evacuated from the abdominal cavity. The port correlating with the EEA stapler device was cleansed with normal saline solution and hydrogen peroxide. The rest of incisions were reapproximated using 4-0 Monocryl in an interrupted subcuticular fashion. Local anesthetic was infiltrated along the skin for postop analgesia. Liquid glue was applied to the skin. OptiFoam dressing was placed along the EEA stapler site. At the end of the procedure, needle, sponge and instrument count had been verified correct by the rn surgical. The patient had tolerated the procedure well and was extubated and taken to the postanesthesia unit in stable condition.
[2021-07-11 20:28] LABS: Glucose,Whole Blood 168 mg/dL (75-99)
[2021-07-11] MEDS: ACETAMINOPHEN IV (For NPO) 1,000 MG in EMPTY BAG 1 BAG IVPB SCH ×2 (20:48→23:37)
[2021-07-11] MEDS: ONDANSETRON 4 MG/2 ML VIAL IVP SCH ×2 (20:49→23:38)
[2021-07-11] MEDS: PANTOPRAZOLE 40 MG/10 ML VIAL IV SCH (20:49)
[2021-07-11] MEDS: HYOSCYAMINE ORAL DROPS 1.875 MG/15 ML BOTTLE PO SCH ×2 (20:50→23:38)
[2021-07-11] MEDS: SIMETHICONE 40 MG/0.6 ML DROPS 2,000 MG/30 ML BOTTLE PO SCH ×2 (20:50→23:38)
[2021-07-11] MEDS: VERAPAMIL SR 240 MG TABLET.ER PO SCH (20:56)
[2021-07-11] MEDS: ALBUTEROL NEBULIZED 2.5 MG/3 ML INHALATION SCH (21:11)
[2021-07-11] MEDS: 0.9% NACL WITH KCL 20 MEQ/L 1,000 ML IV SCH (23:38)
[2021-07-11] MEDS: INSULIN ASPART (NovoLOG) 100 UNIT/ML VIAL SQ SCH (23:43)
[2021-07-11 23:49] LABS: Glucose,Whole Blood 150 mg/dL (75-99)
[2021-07-11] MEDS: HYDROmorphone 1 MG/ML 1 ML SYRINGE IVP PRN (23:50)
[2021-07-12] MEDS: ACETAMINOPHEN IV (For NPO) 1,000 MG in EMPTY BAG 1 BAG IVPB SCH ×2 (05:13→13:21)
[2021-07-12] MEDS: 0.9% NACL WITH KCL 20 MEQ/L 1,000 ML IV SCH ×4 (05:13→20:23)
[2021-07-12] MEDS: SIMETHICONE 40 MG/0.6 ML DROPS 2,000 MG/30 ML BOTTLE PO SCH ×4 (05:14→23:31)
[2021-07-12] MEDS: HYOSCYAMINE ORAL DROPS 1.875 MG/15 ML BOTTLE PO SCH ×4 (05:14→23:31)
[2021-07-12] MEDS: ONDANSETRON 4 MG/2 ML VIAL IVP SCH ×4 (05:14→23:31)
[2021-07-12] MEDS: HYDROmorphone 1 MG/ML 1 ML SYRINGE IVP PRN ×3 (05:21→23:28)
[2021-07-12] MEDS: INSULIN ASPART (NovoLOG) 100 UNIT/ML VIAL SQ SCH ×4 (06:27→23:31)
[2021-07-12 06:51] LABS: Glucose,Whole Blood 101 mg/dL (75-99)
[2021-07-12] MEDS: ALBUTEROL NEBULIZED 2.5 MG/3 ML INHALATION SCH ×4 (08:19→19:01)
[2021-07-12] MEDS: PANTOPRAZOLE 40 MG/10 ML VIAL IV SCH ×2 (08:35→20:24)
[2021-07-12] MEDS: ENOXAPARIN 40 MG/0.4 ML SYRINGE SQ SCH (08:36)
[2021-07-12 09:05] LABS: Basophils # (A) 0.03 X 10*3/uL (0.00-0.10); Basophils % (A) 0.2 %; Eosinophils # (A) 0.01 X 10*3/uL (0.04-0.35); Eosinophils % (A) 0.1 %; HCT 35.5 % (37.2-46.3); HGB 10.7 g/dL (12.0-15.0); Immature Grans, Automated 0.7 %; Lymphocytes # (A) 1.29 X 10*3/uL (0.90-5.00); MCH 27.2 pg (27.0-32.0); MCHC 30.1 g/dL (32.0-37.0); MCV 90.3 fL (80.0-97.0); Mean Platelet Volume 10.2 fL (9.5-12.2); Monocytes # (A) 0.75 X 10*3/uL (0.20-1.00); Monocytes % (A) 4.7 %; NRBC Per 100 WBC 0 /100 WBCS (0.0-0.0); Neutrophils % (A) 86.3 %; Platelet Count 255 X 10*3/uL (140-440); RBC 3.93 X 10*6/uL (4.10-5.20); RDW 14.4 % (11.5-14.5); WBC 16.09 X 10*3/uL (4.50-10.00)
[2021-07-12 09:23] LABS: African American GFR (CKD) 121.3 (60.0-200.0); Anion Gap 13.9 mmol/L (10.00-18.00); Blood Urea Nitrogen 8.3 mg/dL (9.0-27.0); Calcium 8.3 mg/dL (8.7-10.3); Carbon Dioxide 23.1 mmol/L (20.0-27.5); Non-African American GFR(CKD) 104.6 (60.0-200.0); Phosphorus 3.7 mg/dL (2.4-5.1); Potassium 4.6 mmol/L (3.5-5.5)
[2021-07-12 11:58] LABS: Glucose,Whole Blood 98 mg/dL (75-99)
[2021-07-12 12:29] VITALS: BMI 36.7
[2021-07-12 13:03] LABS: Magnesium 1.9 mg/dL (1.5-2.4)
[2021-07-12] MEDS: LACTATED RINGERS 1,000 ML IV SCH (13:22)
--- NOTE | 2021-07-12 13:25 | P.PN ---
<Yue Campos - Last Filed: 07/12/21 13:18> Subjective Progress Note Date: 07/12/21 CHIEF COMPLAINT: Morbid obesity HISTORY OF PRESENT ILLNESS: Patient is status post Robotic-assisted da Alex Xi laparoscopic extensive lysis of adhesions for perigastric, perihepatic adhesions, partial gastrectomy, revision of gastrojejunal anastomosis over a Arsh-en-Y gastric bypass. Postoperative day #1. Her upper GI was completed this morning. Results are pending. Patient reports that her pain is controlled. She did have some nausea earlier this is now improved. No vomiting. She is sitting at bedside chair. Afebrile. She has been mildly tachycardic heart rate of 111. WBC 16.9 hemoglobin 10.7 platelets 255 sodium 1 38 potassium 4.6 creatinine 0.7 magnesium 1. PHYSICAL EXAM: VITAL SIGNS: Reviewed GENERAL: Well-developed in no acute distress. HEENT: No sclera icterus. Extraocular movements grossly intact. Moist buccal mucosa. Head is atraumatic, normocephalic. Hears conversational speech. No nasal drainage. NECK: Supple without lymphadenopathy. CHEST: Non-labored respirations and equal bilateral excursions. CARDIOVASCULAR: Palpable 2+ radial pulses. ABDOMEN: Soft. Nondistended. Incision sites clean dry and intact. Abdominal binder in place. MUSCULOSKELETAL: No clubbing or cyanosis. NEUROLOGIC: No focal or lateralizing signs. Cranial nerves II through XII grossly intact. PSYCH: Appropriate affect. Alert and oriented to person, place and time. SKIN: Well perfused. Good skin turgor. ASSESSMENT: 1. Morbid obesity due to excess calories, BMI 42.0, initial 2. Hypertensive heart disease with cardiomyopathy 3. Diabetes type 2, kzu-gugnmvy-tuvbronka 4. Chronic pain syndrome 5. Depressive disorder 6. Generalized anxiety disorder 7. History of postop nausea and vomiting 8. Generalized osteoarthritis including neck 9. Status post neck fusion 10. History of severe peritoneal adhesions 11. History of previous adjustable gastric band with complications 12. 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 History of gastrojejunal ulcer 14. Severe perihepatic, perigastric adhesions 15. Tachycardia prior to surgery and during surgery PLAN: -Follow up on upper GI results Discontinue Gomez catheter- -Continue supportive care -Continue IV fluids -Continue pain medication as needed -Continue antiemetics -Encourage patient to ambulate -Encourage patient to use incentive spirometer -GI prophylaxis Protonix and DVT prophylaxis Lovenox Physician Barrer And Tacker note has been reviewed by physician. Signing provider agrees with the documented findings, assessment, and plan of care. Objective - Vital Signs Vital signs: Vital Signs Temp 98.5 F 07/12/21 02:14 Pulse 105 H 07/12/21 10:13 Resp 16 07/12/21 10:13 BP 145/93 07/12/21 02:14 Pulse Ox 98 07/12/21 02:14 Intake & Output 07/11/21 07/12/21 07/12/21 18:59 06:59 18:59 Intake Total 2250 Output Total 320 2000 600 Balance 1930 -1999 -600 Weight 100.1 kg 100.1 kg 100.1 kg Intake: IV 2250 Output: Urine 300 2000 600 Estimated Blood Loss 20 Other: Voiding Method Indwelling Catheter Indwelling Catheter # Bowel Movements 0 - Labs CBC & Chem 7: 07/12/21 04:23 07/12/21 04:23 Labs: Abnormal Lab Results - Last 24 Hours (Table) 07/11/21 07/11/21 07/11/21 Range/Units 17:24 20:17 23:43 WBC (4.50-10.00) X 10*3/uL RBC (4.10-5.20) X 10*6/uL Hgb (12.0-15.0) g/dL Hct (37.2-46.3) % MCHC (32.0-37.0) g/dL Immature Gran # (0.00-0.04) X 10*3/uL Neutrophils # (1.80-7.70) X 10*3/uL Eosinophils # (0.04-0.35) X 10*3/uL BUN (9.0-27.0) mg/dL POC Glucose (mg/dL) 169 H 168 H 150 H (75-99) mg/dL Calcium (8.7-10.3) mg/dL 07/12/21 07/12/21 07/12/21 Range/Units 04:23 04:23 06:43 WBC 16.09 H (4.50-10.00) X 10*3/uL RBC 3.93 L (4.10-5.20) X 10*6/uL Hgb 10.7 L (12.0-15.0) g/dL Hct 35.5 L (37.2-46.3) % MCHC 30.1 L (32.0-37.0) g/dL Immature Gran # 0.11 H (0.00-0.04) X 10*3/uL Neutrophils # 13.90 H (1.80-7.70) X 10*3/uL Eosinophils # 0.01 L (0.04-0.35) X 10*3/uL BUN 8.3 L (9.0-27.0) mg/dL POC Glucose (mg/dL) 101 H (75-99) mg/dL Calcium 8.3 L (8.7-10.3) mg/dL <Roberta Duval - Last Filed: 07/13/21 05:05> Subjective CHIEF COMPLAINT: Morbid obesity HISTORY OF PRESENT ILLNESS: Shameka Murguia is a 46-year-old female status post extensive lysis of adhesions, revision of gastrojejunostomy and partial gastrectomy, 07/11/2021. She is tolerating liquid diet. Upper GI demonstrates no obstruction or leaks. She has pre-existing tachycardia present just prior to during surgery. She reports soreness however tolerable. REVIEW OF ORGAN SYSTEMS: No fevers or chills. No shortness of breath. PHYSICAL EXAM: VITAL SIGNS: Height 5 foot 4 inches, weight 214 pounds. BMI 36.9 GENERAL: Well-developed in no acute distress. HEENT: No scleral icterus. Extraocular movements grossly intact. Hears conversational speech. No nasal drainage. NECK: Supple without lymphadenopathy. CHEST: Nonlabored respirations with equal bilateral excursions. CARDIOVASCULAR: Distal 2+ pulses. ABDOMEN: Obese, soft. Binder present MUSCULOSKELETAL: No clubbing, cyanosis. NEURO: No focal or lateralizing signs. Cranial nerves 2 through 12 grossly within normal limits. PSYCH: Appropriate affect. Alert and oriented to person, place and time. SKIN: Good skin turgor. Well perfused. LABS: Reviewed. Hemoglobin 10.1, anemia. White blood cell count elevated at 16. STUDIES: Upper GI with small bowel follow-through review without obstruction or leaks. ASSESSMENT: 1. Morbid obesity due to excess calories 2. Body mass index of 36.9 3. Gastroesophageal reflux disease 4. Osteoarthritis of the lower back. 5. Hypertensive heart disease. 6. Depressive disorder 7. Chronic pain syndrome 8. Complications of bariatric procedure, adjustable gastric band 9. History of recurrent gastrojejunal ulcer 10. Past tobacco abuse disorder 11. Diabetes type 2 12. Status post revision gastrojejunal anastomosis 13. Status post lysis of adhesions PLAN: 1. Continue hospitalization due to complexity of surgery as well as pain management 2. May benefit from metoprolol with pre-existing tachycardia Objective - Vital Signs Vital signs: Vital Signs Temp 99 F 07/13/21 04:45 Pulse 100 07/13/21 04:45 Resp 18 07/13/21 04:45 BP 133/80 07/13/21 04:45 Pulse Ox 98 07/13/21 04:45 Intake & Output 07/12/21 07/12/21 07/13/21 06:59 18:59 06:59 Output Total 2000 600 Balance -1999 -600 Weight 100.1 kg 100.1 kg Output: Urine 2000 600 Other: Voiding Method Indwelling Catheter Indwelling Catheter # Bowel Movements 0 - Labs CBC & Chem 7: 07/12/21 04:23 07/12/21 04:23 Labs: Abnormal Lab Results - Last 24 Hours (Table) 07/12/21 07/12/21 07/12/21 Range/Units 04:23 04:23 06:43 WBC 16.09 H (4.50-10.00) X 10*3/uL RBC 3.93 L (4.10-5.20) X 10*6/uL Hgb 10.7 L (12.0-15.0) g/dL Hct 35.5 L (37.2-46.3) % MCHC 30.1 L (32.0-37.0) g/dL Immature Gran # 0.11 H (0.00-0.04) X 10*3/uL Neutrophils # 13.90 H (1.80-7.70) X 10*3/uL Eosinophils # 0.01 L (0.04-0.35) X 10*3/uL BUN 8.3 L (9.0-27.0) mg/dL POC Glucose (mg/dL) 101 H (75-99) mg/dL Calcium 8.3 L (8.7-10.3) mg/dL 07/12/21 Range/Units 19:11 WBC (4.50-10.00) X 10*3/uL RBC (4.10-5.20) X 10*6/uL Hgb (12.0-15.0) g/dL Hct (37.2-46.3) % MCHC (32.0-37.0) g/dL Immature Gran # (0.00-0.04) X 10*3/uL Neutrophils # (1.80-7.70) X 10*3/uL Eosinophils # (0.04-0.35) X 10*3/uL BUN (9.0-27.0) mg/dL POC Glucose (mg/dL) 101 H (75-99) mg/dL Calcium (8.7-10.3) mg/dL Assessment and Plan (1) Gastrojejunal ulcer Current Visit: Yes Status: Acute Code(s): K28.9 - GASTROJEJUNAL ULCER, UNSP ACUTE OR CHR, W/O HEMOR OR PERF SNOMED Code(s): 69694562 (2) BMI 36.0-36.9,adult Current Visit: No Status: Acute Code(s): Z68.36 - BODY MASS INDEX [BMI] 36.0-36.9, ADULT SNOMED Code(s): 124438980 (3) Chronic pain syndrome Current Visit: No Status: Acute Code(s): G89.4 - CHRONIC PAIN SYNDROME SNOMED Code(s): 359443907 (4) H/O gastric bypass Current Visit: No Status: Acute Code(s): Z98.84 - BARIATRIC SURGERY STATUS SNOMED Code(s): 973102400 (5) Peritoneal adhesions Current Visit: No Status: Acute Code(s): K66.0 - PERITONEAL ADHESIONS (POSTPROCEDURAL) (POSTINFECTION) SNOMED Code(s): 40398891
--- NOTE | 2021-07-12 16:40 | FL ---
SINGLE CONTRAST UPPER GI EXAMINATION: CLINICAL HISTORY: 46-year-old female postoperative bariatric surgery, revision of gastric bypass. TECHNIQUE: Single contrast exam performed with 50 ml Isovue-370 contrast. Total fluoroscopy time: 1 minute 1 second. Total images: 26. FINDINGS: The patient swallowed Gastrografin without difficulty or delay. Esophageal peristalsis and motility shows mild tertiary peristaltic waves. There is no hiatal hernia. Prompt passage of contrast into the stomach and subsequent prompt passage across the gastrojejunostomy into left-sided jejunal loops. No abnormal narrowing at the anastomosis. No extravasation of contrast to suggest leak. No postsurgical free air is seen. IMPRESSION: 1. Status post revision of Arsh-en-Y gastric bypass. Patent gastrojejunostomy. No leak is visualized. 2. No recurrent hiatal hernia.
[2021-07-12 19:13] LABS: Glucose,Whole Blood 101 mg/dL (75-99)
[2021-07-12] MEDS: VERAPAMIL SR 240 MG TABLET.ER PO SCH (20:29)
[2021-07-13 00:43] LABS: Glucose,Whole Blood 95 mg/dL (75-99)
[2021-07-13] MEDS ORDERED: SODIUM CHLORIDE 0.9% 1,000 ML IV ONE (03:17)
[2021-07-13] MEDS: 0.9% NACL WITH KCL 20 MEQ/L 1,000 ML IV SCH ×2 (04:43→17:52)
[2021-07-13] MEDS: PIPERACILLIN-TAZOBACTAM 3.375 GM in SODIUM CHLORIDE 0.9% 100 ML IVPB SCH ×3 (04:43→20:42)
[2021-07-13] MEDS: ONDANSETRON 4 MG/2 ML VIAL IVP SCH ×3 (04:44→17:52)
[2021-07-13] MEDS: LACTATED RINGERS 1,000 ML IV SCH (04:44)
[2021-07-13] MEDS: INSULIN ASPART (NovoLOG) 100 UNIT/ML VIAL SQ SCH ×3 (04:44→17:53)
[2021-07-13] MEDS: METOPROLOL TARTRATE 25 MG TAB PO SCH ×3 (04:44→20:42)
[2021-07-13] MEDS: SIMETHICONE 40 MG/0.6 ML DROPS 2,000 MG/30 ML BOTTLE PO SCH ×3 (04:44→17:52)
[2021-07-13 07:04] LABS: Glucose,Whole Blood 90 mg/dL (75-99)
[2021-07-13] MEDS ORDERED: bisacodyL 5 MG TABLET.DR PO PRN (08:00)
[2021-07-13] MEDS: ENOXAPARIN 40 MG/0.4 ML SYRINGE SQ SCH (08:39)
[2021-07-13] MEDS: PANTOPRAZOLE 40 MG/10 ML VIAL IV SCH ×2 (08:39→20:42)
[2021-07-13 09:26] LABS: Basophils # (A) 0.02 X 10*3/uL (0.00-0.10); Basophils % (A) 0.2 %; Eosinophils # (A) 0.29 X 10*3/uL (0.04-0.35); Eosinophils % (A) 2.5 %; HCT 34.2 % (37.2-46.3); HGB 10.4 g/dL (12.0-15.0); Immature Grans, Automated 0.7 %; Lymphocytes # (A) 1.94 X 10*3/uL (0.90-5.00); Lymphocytes % (A) 16.6 %; MCH 27.5 pg (27.0-32.0); MCHC 30.4 g/dL (32.0-37.0); MCV 90.5 fL (80.0-97.0); Mean Platelet Volume 10.4 fL (9.5-12.2); Monocytes # (A) 0.66 X 10*3/uL (0.20-1.00); Monocytes % (A) 5.6 %; NRBC Per 100 WBC 0 /100 WBCS (0.0-0.0); Neutrophils # (A) 8.73 X 10*3/uL (1.80-7.70); Neutrophils % (A) 74.4 %; Platelet Count 230 X 10*3/uL (140-440); RBC 3.78 X 10*6/uL (4.10-5.20); WBC 11.72 X 10*3/uL (4.50-10.00)
[2021-07-13] MEDS: ALBUTEROL NEBULIZED 2.5 MG/3 ML INHALATION SCH ×4 (10:23→21:49)
[2021-07-13] MEDS: HYDROmorphone 1 MG/ML 1 ML SYRINGE IVP PRN ×3 (11:19→20:43)
[2021-07-13 11:30] LABS: Glucose,Whole Blood 101 mg/dL (75-99)
--- NOTE | 2021-07-13 13:57 | P.PN ---
<WendyYue fernandez - Last Filed: 07/13/21 13:53> Subjective Progress Note Date: 07/13/21 CHIEF COMPLAINT: Morbid obesity HISTORY OF PRESENT ILLNESS: Patient is status post Robotic-assisted da Alex Xi laparoscopic extensive lysis of adhesions for perigastric, perihepatic adhesions, partial gastrectomy, revision of gastrojejunal anastomosis over a Arsh-en-Y gastric bypass. Postoperative day #2. Her upper GI shows no leak. Patent gastrojejunostomy. No recurrent hiatal hernia. Patient reports her pain is controlled. Denies any nausea or vomiting. She did have a temp of 100.3 last night. Metoprolol was added for her tachycardia. Heart rate 93 this morning. WBC is down from 16.09-11.72 hemoglobin 10.4 platelets 230. Patient reports urinating without difficulty. PHYSICAL EXAM: VITAL SIGNS: Reviewed GENERAL: Well-developed in no acute distress. HEENT: No sclera icterus. Extraocular movements grossly intact. Moist buccal mucosa. Head is atraumatic, normocephalic. Hears conversational speech. No nasal drainage. NECK: Supple without lymphadenopathy. CHEST: Non-labored respirations and equal bilateral excursions. CARDIOVASCULAR: Palpable 2+ radial pulses. ABDOMEN: Soft. Nondistended. Incision sites clean dry and intact. Abdominal binder in place. MUSCULOSKELETAL: No clubbing or cyanosis. NEUROLOGIC: No focal or lateralizing signs. Cranial nerves II through XII grossly intact. PSYCH: Appropriate affect. Alert and oriented to person, place and time. SKIN: Well perfused. Good skin turgor. ASSESSMENT: 1. Morbid obesity due to excess calories, BMI 42.0, initial 2. Hypertensive heart disease with cardiomyopathy 3. Diabetes type 2, [id number]-[id number] 4. Chronic pain syndrome 5. Depressive disorder 6. Generalized anxiety disorder 7. History of postop nausea and vomiting 8. Generalized osteoarthritis including neck 9. Status post neck fusion 10. History of severe peritoneal adhesions 11. History of previous adjustable gastric band with complications 12. 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 History of gastrojejunal ulcer 14. Severe perihepatic, perigastric adhesions 15. Tachycardia prior to surgery and during surgery PLAN: -Patient is NPO except for popsicles -Continue supportive care -Continue IV fluids -Continue pain medication as needed -Continue antiemetics -Encourage patient to ambulate -Encourage patient to use incentive spirometer -GI prophylaxis Protonix and DVT prophylaxis Lovenox Physician Shift Leader note has been reviewed by physician. Signing provider agrees with the documented findings, assessment, and plan of care. Objective - Vital Signs Vital signs: Vital Signs Temp 99 F 07/13/21 04:45 Pulse 93 07/13/21 08:13 Resp 18 07/13/21 08:13 BP 138/81 07/13/21 08:13 Pulse Ox 97 07/13/21 11:30 Intake & Output 07/12/21 07/13/21 07/13/21 18:59 06:59 18:59 Output Total 600 Balance -600 Weight 100.1 kg Output: Urine 600 Other: Voiding Method Indwelling Catheter Toilet # Voids 1 # Bowel Movements 0 - Labs CBC & Chem 7: 07/13/21 03:29 07/12/21 04:23 Labs: Abnormal Lab Results - Last 24 Hours (Table) 07/12/21 07/13/21 07/13/21 Range/Units 19:11 03:29 11:29 WBC 11.72 H (4.50-10.00) X 10*3/uL RBC 3.78 L (4.10-5.20) X 10*6/uL Hgb 10.4 L (12.0-15.0) g/dL Hct 34.2 L (37.2-46.3) % MCHC 30.4 L (32.0-37.0) g/dL RDW 15.0 H (11.5-14.5) % Immature Gran # 0.08 H (0.00-0.04) X 10*3/uL Neutrophils # 8.73 H (1.80-7.70) X 10*3/uL POC Glucose (mg/dL) 101 H 101 H (75-99) mg/dL <Roberta Duval - Last Filed: 07/14/21 14:52> Subjective Clinically, patient without abdominal pain. Patient reports to starting menses which affects her fever curve. Overall, we'll reassess for discharge tomorrow pending resolution white count, resolved fever, and tolerating diet. Objective - Vital Signs Vital signs: Vital Signs Temp 98.8 F 07/14/21 08:00 Pulse 75 02/24/22 13:03 Resp 16 07/14/21 08:00 BP 118/72 07/14/21 08:00 Pulse Ox 95 07/14/21 08:45 Intake & Output 07/13/21 07/14/21 07/14/21 18:59 06:59 18:59 Other: Voiding Method Toilet Toilet Toilet - Labs CBC & Chem 7: 07/14/21 12:36 07/12/21 04:23 Labs: Abnormal Lab Results - Last 24 Hours (Table) 07/14/21 07/14/21 07/14/21 Range/Units 00:06 08:24 11:27 RBC 3.70 L (3.80-5.40) m/uL Hgb 10.8 L (11.4-16.0) gm/dL Hct 33.1 L (34.0-46.0) % POC Glucose (mg/dL) 107 H 149 H (75-99) mg/dL 07/14/21 Range/Units 12:36 RBC 3.69 L (3.80-5.40) m/uL Hgb 10.8 L (11.4-16.0) gm/dL Hct 32.8 L (34.0-46.0) % POC Glucose (mg/dL) (75-99) mg/dL Assessment and Plan (1) Gastrojejunal ulcer Current Visit: Yes Status: Acute Code(s): K28.9 - GASTROJEJUNAL ULCER, UNSP ACUTE OR CHR, W/O HEMOR OR PERF SNOMED Code(s): 70052844 (2) BMI 36.0-36.9,adult Current Visit: No Status: Acute Code(s): Z68.36 - BODY MASS INDEX [BMI] 36.0-36.9, ADULT SNOMED Code(s): 032530132 (3) Chronic pain syndrome Current Visit: No Status: Acute Code(s): G89.4 - CHRONIC PAIN SYNDROME SNOMED Code(s): 559414291 (4) H/O gastric bypass Current Visit: No Status: Acute Code(s): Z98.84 - BARIATRIC SURGERY STATUS SNOMED Code(s): 358576275 (5) Peritoneal adhesions Current Visit: No Status: Acute Code(s): K66.0 - PERITONEAL ADHESIONS (POSTPROCEDURAL) (POSTINFECTION) SNOMED Code(s): 02986321
[2021-07-13 16:26] LABS: Glucose,Whole Blood 96 mg/dL (75-99)
[2021-07-13 20:21] LABS: Glucose,Whole Blood 95 mg/dL (75-99)
[2021-07-13] MEDS: VERAPAMIL SR 240 MG TABLET.ER PO SCH (20:42)
[2021-07-14 00:07] LABS: Glucose,Whole Blood 107 mg/dL (75-99)
[2021-07-14] MEDS: INSULIN ASPART (NovoLOG) 100 UNIT/ML VIAL SQ SCH ×3 (00:17→11:49)
[2021-07-14] MEDS: ONDANSETRON 4 MG/2 ML VIAL IVP SCH ×3 (00:26→11:48)
[2021-07-14] MEDS: 0.9% NACL WITH KCL 20 MEQ/L 1,000 ML IV SCH ×2 (00:27→11:52)
[2021-07-14] MEDS: SIMETHICONE 40 MG/0.6 ML DROPS 2,000 MG/30 ML BOTTLE PO SCH ×3 (00:27→11:51)
[2021-07-14] MEDS: PIPERACILLIN-TAZOBACTAM 3.375 GM in SODIUM CHLORIDE 0.9% 100 ML IVPB SCH ×2 (04:02→11:50)
[2021-07-14 05:40] LABS: Glucose,Whole Blood 99 mg/dL (75-99)
[2021-07-14] MEDS ORDERED: ACETAMINOPHEN IV (For NPO) 1,000 MG in EMPTY BAG 1 BAG IVPB ONE (06:08)
[2021-07-14] MEDS: ENOXAPARIN 40 MG/0.4 ML SYRINGE SQ SCH (07:48)
[2021-07-14] MEDS: LACTATED RINGERS 1,000 ML IV SCH (07:48)
[2021-07-14] MEDS: PANTOPRAZOLE 40 MG/10 ML VIAL IV SCH (07:48)
[2021-07-14] MEDS: METOPROLOL TARTRATE 25 MG TAB PO SCH (07:48)
[2021-07-14] MEDS: HYDROmorphone 1 MG/ML 1 ML SYRINGE IVP PRN ×2 (07:52→11:47)
[2021-07-14 08:03] VITALS: RESP 16
[2021-07-14] MEDS: ALBUTEROL NEBULIZED 2.5 MG/3 ML INHALATION SCH ×2 (08:45→12:49)
[2021-07-14 09:05] LABS: Basophils % (A) 0 %; Eosinophils # (A) 0.3 k/uL (0-0.7); Eosinophils % (A) 4 %; HCT 33.1 % (34.0-46.0); HGB 10.8 gm/dL (11.4-16.0); Lymphocytes # (A) 1.7 k/uL (1.0-4.8); Lymphocytes % (A) 19 %; MCH 29.3 pg (25.0-35.0); MCHC 32.7 g/dL (31.0-37.0); MCV 89.5 fL (80.0-100.0); Mean Platelet Volume 7.3; Monocytes # (A) 0.3 k/uL (0-1.0); Monocytes % (A) 3 %; Neutrophils # (A) 6.4 k/uL (1.3-7.7); Neutrophils % (A) 73 %; Platelet Count 206 k/uL (150-450); RDW 14.8 % (11.5-15.5); WBC 8.9 k/uL (3.8-10.6)
[2021-07-14 11:28] LABS: Glucose,Whole Blood 149 mg/dL (75-99)
--- NOTE | 2021-07-14 11:44 | P.PN ---
Subjective Progress Note Date: 07/14/21 CHIEF COMPLAINT: Morbid obesity HISTORY OF PRESENT ILLNESS: Shameka Murguia is a 46-year-old female status post extensive lysis of adhesions, revision of gastrojejunostomy and partial gastrectomy, 07/11/2021. She reports starting her period and as a result reports having a hot flash/feeling warm last night coinciding with the temperature of 99.9. She denies shortness of breath. No abdominal pain. She had an headache this morning is now resolved. She could go home. No new complaints. Pain is well-controlled. REVIEW OF ORGAN SYSTEMS: No shortness of breath. No chest pain. PHYSICAL EXAM: VITAL SIGNS: Height 5 foot 4 inches, weight 214 pounds. BMI 36.9 GENERAL: Well-developed in no acute distress. HEENT: No scleral icterus. Extraocular movements grossly intact. Hears conversational speech. No nasal drainage. NECK: Supple without lymphadenopathy. CHEST: Nonlabored respirations with equal bilateral excursions. CARDIOVASCULAR: Distal 2+ pulses. ABDOMEN: Obese, soft. Binder present MUSCULOSKELETAL: No clubbing, cyanosis. NEURO: No focal or lateralizing signs. Cranial nerves 2 through 12 grossly within normal limits. PSYCH: Appropriate affect. Alert and oriented to person, place and time. SKIN: Good skin turgor. Well perfused. LABS: Reviewed. White blood cell count elevated at 16, now normal 8.9. Hemoglobin stable 10.4-10.8. ASSESSMENT: 1. Morbid obesity due to excess calories 2. Body mass index of 36.9 3. Gastroesophageal reflux disease 4. Osteoarthritis of the lower back. 5. Hypertensive heart disease. 6. Depressive disorder 7. Chronic pain syndrome 8. Complications of bariatric procedure, adjustable gastric band 9. History of recurrent gastrojejunal ulcer 10. Past tobacco abuse disorder 11. Diabetes type 2 12. Status post revision gastrojejunal anastomosis 13. Status post lysis of adhesions PLAN: 1. Bariatric clear liquid diet has been resumed. We'll repeat CBC this afternoon following diet. 2. Discharge home with follow-up in the bariatric center next week reviewed. 3. Strict avoidance of NSAIDs including gastrotoxic agents described 4. Patient's pre-existing history of tachycardia for which we'll continue metoprolol on discharge Objective - Vital Signs Vital signs: Vital Signs Temp 98.8 F 07/14/21 08:00 Pulse 77 07/14/21 08:55 Resp 16 07/14/21 08:00 BP 118/72 07/14/21 08:00 Pulse Ox 95 07/14/21 08:45 Intake & Output 07/13/21 07/14/21 07/14/21 18:59 06:59 18:59 Other: Voiding Method Toilet Toilet Toilet - Labs CBC & Chem 7: 07/14/21 08:24 07/12/21 04:23 Labs: Abnormal Lab Results - Last 24 Hours (Table) 07/14/21 07/14/21 07/14/21 Range/Units 00:06 08:24 11:27 RBC 3.70 L (3.80-5.40) m/uL Hgb 10.8 L (11.4-16.0) gm/dL Hct 33.1 L (34.0-46.0) % POC Glucose (mg/dL) 107 H 149 H (75-99) mg/dL Assessment and Plan (1) Gastrojejunal ulcer Current Visit: Yes Status: Acute Code(s): K28.9 - GASTROJEJUNAL ULCER, UNSP ACUTE OR CHR, W/O HEMOR OR PERF SNOMED Code(s): 34738582 (2) BMI 36.0-36.9,adult Current Visit: No Status: Acute Code(s): Z68.36 - BODY MASS INDEX [BMI] 36.0-36.9, ADULT SNOMED Code(s): 640478046 (3) Chronic pain syndrome Current Visit: No Status: Acute Code(s): G89.4 - CHRONIC PAIN SYNDROME SNOMED Code(s): 139701533 (4) H/O gastric bypass Current Visit: No Status: Acute Code(s): Z98.84 - BARIATRIC SURGERY STATUS SNOMED Code(s): 342204048 (5) Peritoneal adhesions Current Visit: No Status: Acute Code(s): K66.0 - PERITONEAL ADHESIONS (POSTPROCEDURAL) (POSTINFECTION) SNOMED Code(s): 40887054
[2021-07-14 12:48] LABS: Basophils % (A) 0 %; Eosinophils # (A) 0.4 k/uL (0-0.7); Eosinophils % (A) 4 %; HCT 32.8 % (34.0-46.0); HGB 10.8 gm/dL (11.4-16.0); Lymphocytes # (A) 2.4 k/uL (1.0-4.8); Lymphocytes % (A) 25 %; MCH 29.4 pg (25.0-35.0); Mean Platelet Volume 7.6; Monocytes # (A) 0.3 k/uL (0-1.0); Monocytes % (A) 4 %; Neutrophils # (A) 6.3 k/uL (1.3-7.7); Neutrophils % (A) 66 %; Platelet Count 210 k/uL (150-450); RBC 3.69 m/uL (3.80-5.40); RDW 14.2 % (11.5-15.5); WBC 9.5 k/uL (3.8-10.6)
--- NOTE | 2021-07-14 14:32 | P.DS ---
<Yue Campos - Last Filed: 07/14/21 14:29> Providers Expected date of discharge: 07/14/21 Hospital Course: Discharge diagnosis 1. Morbid obesity due to excess calories 2. Body mass index of 36.9 3. Gastroesophageal reflux disease 4. Osteoarthritis of the lower back. 5. Hypertensive heart disease. 6. Depressive disorder 7. Chronic pain syndrome 8. Complications of bariatric procedure, adjustable gastric band 9. History of recurrent gastrojejunal ulcer 10. Past tobacco abuse disorder 11. Diabetes type 2 12. Status post revision gastrojejunal anastomosis 13. Status post lysis of adhesions Hospital course Shameka Murguia is a 46-year-old female who comes in with multiple bariatric procedures from adjustable gastric band to conversion to gastric bypass, November 2017. She comes in with trouble with weigh loss including history of gastrojejunal ulcer and large gastric pouch. She has history of complications with her band x 2 prior to her gastric bypass secondary to gastric prolapse and slippage. Patient is status post extensive lysis of adhesions, revision of gastrojejunostomy and partial gastrectomy, 07/11/2021. Patient tolerated surgery well. Her pain is controlled. She is tolerating diet. She's afebrile. Her white count has normalized. She is having bowel movements and flatus. She is up and ambulating. She is stable for discharge. Physician Manager Operations Research note has been reviewed by physician. Signing provider agrees with the documented findings, assessment, and plan of care. Patient Condition at Discharge: Stable Plan - Discharge Summary Discharge Rx Participant: Yes New Discharge Prescriptions: New Omeprazole [PriLOSEC] 40 mg PO DAILY #30 cap bisacodyL [Dulcolax] 5 mg PO DAILY PRN #10 tab PRN Reason: Constipation Simethicone 40 mg/0.6 ml Drops [Mylicon Drops] 40 mg PO PCHS PRN #30 ml PRN Reason: Gas Ondansetron Odt [Zofran Odt] 4 mg PO Q8HR PRN #9 tab PRN Reason: Nausea Acetaminophen Tab [Tylenol Tab] 1,000 mg PO Q6HR PRN #30 tablet PRN Reason: Pain RX: Metoprolol Tartrate [Lopressor] 25 mg PO BID #30 tablet Continue RX: tiZANidine HCL [Zanaflex] 6 mg PO HS PRN PRN Reason: Pain RX: Amitriptyline HCl [Elavil] 10 mg PO HS RX: oxyCODONE HCL/ACETAMINOPHEN [Percocet 10-325 mg] 1 tab PO DAILY PRN PRN Reason: Pain RX: Sertraline HCl [Zoloft] 100 mg PO HS RX: Verapamil HCl [Verapamil ER] 240 mg PO HS RX: metFORMIN HCL [Glucophage] 500 mg PO DAILY RX: Gabapentin [Neurontin] 300 mg PO TID PRN PRN Reason: Pain Imitrex (Unknown Dose) 1 tab PO DIRECTED PRN PRN Reason: Migraine Headache Discontinued RX: Omeprazole 20 mg PO DAILY Ibuprofen [Motrin] 800 mg PO DAILY Discharge Medication List RX: Amitriptyline HCl [Elavil] 10 mg PO HS 12/28/17 [History] RX: oxyCODONE HCL/ACETAMINOPHEN [Percocet 10-325 mg] 1 tab PO DAILY PRN 12/28/17 [History] RX: tiZANidine HCL [Zanaflex] 6 mg PO HS PRN 12/28/17 [History] RX: Sertraline HCl [Zoloft] 100 mg PO HS 10/01/20 [History] RX: Verapamil HCl [Verapamil ER] 240 mg PO HS 10/01/20 [History] RX: metFORMIN HCL [Glucophage] 500 mg PO DAILY 03/02/21 [History] RX: Gabapentin [Neurontin] 300 mg PO TID PRN 06/29/21 [History] Imitrex (Unknown Dose) 1 tab PO DIRECTED PRN 07/07/21 [History] Acetaminophen Tab [Tylenol Tab] 1,000 mg PO Q6HR PRN #30 tablet 07/11/21 [Rx] Omeprazole [PriLOSEC] 40 mg PO DAILY #30 cap 07/11/21 [Rx] Ondansetron Odt [Zofran Odt] 4 mg PO Q8HR PRN #9 tab 07/11/21 [Rx] Simethicone 40 mg/0.6 ml Drops [Mylicon Drops] 40 mg PO PCHS PRN #30 ml 07/11/21 [Rx] bisacodyL [Dulcolax] 5 mg PO DAILY PRN #10 tab 07/11/21 [Rx] RX: Metoprolol Tartrate [Lopressor] 25 mg PO BID #30 tablet 07/14/21 [Rx] Follow up [facility]ment(s[facility]Ref[facility] [facility] [place] [place] [facility] [place] Patient Instructions/Handouts: Nutrition after Bariatric Surgery (GEN), Arsh-en-Y Gastric Bypass (GEN) Activity/Diet/Wound Care/Special Instructions: NO Motrin, ibuprofen, Aleve, naproxen, Megan, aspirin, Celebrex, Excedrin Liquid diet only for 2 weeks until July 25 No lifting over 4 pounds in 4 weeks, August 08 May Shower. No soaking in bath tubs, until July 25 Please notify your surgeon if you develop nausea and vomiting including new onset of abdominal pain. Continue to use incentive spirometry to prevent pneumonias. Please continue to ambulate at home to prevent blood clots in legs. Follow-up at the bariatric center. May shower. Dressings to be discontinued by surgeon in the office. Drink 64 oz of fluid daily. Start protein shakes on . Notify bariatric center for temp over 101.0, increased pain, drainage from incisions. No straws or carbonated beverages. Liquid diet only. Sugar content should be less than 6 g to avoid dumping syndrome. Take MOM for constipation. CRUSH, OPEN, OR CUT TABLETS LARGER THAN A SIZE OF A TIC TAC Discharge Disposition: HOME SELF-CARE <Roberta Duval - Last Filed: 07/14/21 14:51> Providers Date of admission: 07/11/21 09:28 Attending physician: Roberta Duval Primary care physician: Stated None - Discharge Diagnosis(es) (1) Gastrojejunal ulcer Current Visit: Yes Status: Acute (2) BMI 36.0-36.9,adult Current Visit: No Status: Acute (3) Chronic pain syndrome Current Visit: No Status: Acute (4) H/O gastric bypass Current Visit: No Status: Acute (5) Peritoneal adhesions Current Visit: No Status: Acute Hospital Course: As above. Patient reports tolerating diet. Discharge instructions thoroughly reviewed. Patient stable for discharge.
[2021-07-14 15:16] VITALS: BP 138/89; PULSE 98; TEMP 98.6
== END 2021-07-14 15:27 | disposition home or self-care (01) | DRG 327 ==
LOC: 2ORMAIN 09:28 → 4SSUR 17:21
PROVIDERS: ADMIT Surgery Plastic and Reconstructive Surgery; ATTEND Surgery Plastic and Reconstructive Surgery
PROC: 8E0W4CZ Robotic Assisted Procedure of Trunk Region, Percutaneous Endoscopic Approach (ICD-10-PCS; 2021-07-11)
PROC: 0DB64ZZ Excision of Stomach, Percutaneous Endoscopic Approach (ICD-10-PCS; principal; 2021-07-11 10:35)
PROC: 0D164ZA Bypass Stomach to Jejunum, Percutaneous Endoscopic Approach (ICD-10-PCS; principal; 2021-07-11 10:35)
PROC: 0DJ08ZZ Inspection of Upper Intestinal Tract, Via Natural or Artificial Opening Endoscopic (ICD-10-PCS; principal; 2021-07-11 10:35)
DX: K95.89 Other complications of other bariatric procedure (principal); I42.9 Cardiomyopathy, unspecified; Y83.9 Surgical procedure, unspecified as the cause of abnormal reaction of the patient, or of later complication, without mention of misadventure at the time of the procedure; E66.01 Morbid (severe) obesity due to excess calories; E11.9 Type 2 diabetes mellitus without complications; F32.A Depression, unspecified; F41.1 Generalized anxiety disorder; K28.9 Gastrojejunal ulcer, unspecified as acute or chronic, without hemorrhage or perforation; R00.0 Tachycardia, unspecified; G89.4 Chronic pain syndrome; I11.9 Hypertensive heart disease without heart failure; K21.9 Gastro-esophageal reflux disease without esophagitis; K66.0 Peritoneal adhesions (postprocedural) (postinfection); M47.812 Spondylosis without myelopathy or radiculopathy, cervical region; M47.819 Spondylosis without myelopathy or radiculopathy, site unspecified; M15.9 Polyosteoarthritis, unspecified; Z68.36 Body mass index [BMI] 36.0-36.9, adult; Z98.1 Arthrodesis status; Z79.1 Long term (current) use of non-steroidal anti-inflammatories (NSAID); Z79.84 Long term (current) use of oral hypoglycemic drugs; Z79.899 Other long term (current) drug therapy; Z82.49 Family history of ischemic heart disease and other diseases of the circulatory system; Z87.11 Personal history of peptic ulcer disease; Z87.891 Personal history of nicotine dependence
CPT/HCPCS: 64999; 74240; 80051; 80307; 82310; 82565; 83735; 84100; 84520; 85025; 86850; 86900; 86901; 88307; 94640; 94760

== ENCOUNTER → 2021-07-20 | Outpatient (CLI) | payer BC ==
[2021-07-20 13:45] VITALS: BP 146/118; PULSE 108; RESP 16; TEMP 98.9; BMI 35.7
--- NOTE | 2021-07-20 14:19 | P.BASOAP ---
Subjective Progress Note Date: 07/20/21 DATE: 07/20/2021 CHIEF COMPLAINT: Status post gastric bypass HISTORY OF PRESENT ILLNESS: Shameka Murguia is a 46-year-old female from adjustable gastric band to conversion to gastric bypass, November 2017. She is 4 years out. She is status post revision of gastrojejunostomy, 07/11/2021. She is over 1 week out. She is off naproxen. She has lost 10 pounds. She feels restriction as she wanted. No abdominal pain. She has baseline tachycardia. She is happy with her weight loss. She is doing well. At height of 5 feet 4 inches, her ideal body weight is 144 pounds. Highest weight 244 pounds, BMI 42.0. Her lowest weight was 155 pounds. She comes in 212 pounds from 223 pounds, 1 month ago. She has lost 11 pounds in 1 month. Her body mass index is 35.7. She is 68 pounds overweight. Lifetime weight loss of 32 pounds. Percent excess weight loss of 32%. PHYSICAL EXAM: VITAL SIGNS: Height 5 foot 4.5 inches, weight 212 pounds. BMI 35.7 Vital Signs Temp 98.9 F 07/20/21 13:42 Pulse 108 H 07/20/21 13:42 Resp 16 07/20/21 13:42 BP 146/118 07/20/21 13:42 Pulse Ox GENERAL: Well-developed in no acute distress. HEENT: No scleral icterus. Extraocular movements grossly intact. Hears conversational speech. No nasal drainage. NECK: Supple without lymphadenopathy. CHEST: Nonlabored respirations with equal bilateral excursions. CARDIOVASCULAR: Tachycardic. Distal 2+ pulses. ABDOMEN: Obese. No infection or cellulitis. MUSCULOSKELETAL: No clubbing, cyanosis. NEURO: No focal or lateralizing signs. Cranial nerves 2 through 12 grossly within normal limits. PSYCH: Appropriate affect. Alert and oriented to person, place and time. SKIN: Good skin turgor. Well perfused. ASSESSMENT: 1. Morbid obesity due to excess calories 2. Body mass index of 42.0, initial to 38.3 3. Gastroesophageal reflux disease 4. Osteoarthritis of the lower back. 5. Hypertensive heart disease. 6. Depressive disorder 7. Diaphragmatic hiatal hernia 8. Complications of bariatric procedure, adjustable gastric band 9. History of gastrojejunal ulcer 10. Persistent tachycardia 11. Iron deficiency anemia 12. Hypertriglyceridemia 13. Vitamin D deficiency 14. Zinc deficiency 15. Status post gastrojejunostomy revision PLAN: 1. She is cautioned to avoid NSAIDS such as naproxen that increases risk for ulcers. 2. She has baseline tachycardia and on metoprolol to be weaned. 3. May stop glucophage and recheck blood pressure and heart rate at home. Objective - Vital Signs Vital signs: Vital Signs Temp 98.9 F 07/20/21 13:42 Pulse 108 H 07/20/21 13:42 Resp 16 07/20/21 13:42 BP 146/118 07/20/21 13:42 Pulse Ox Intake & Output 07/19/21 07/20/21 07/20/21 18:59 06:59 18:59 Weight 96.162 kg Assessment/Plan Plan: Date: 07/20/21 Initial Weight: 117.934 kg Initial BMI: 43.8 Current Weight: 96.162 kg Current BMI: 35.7 Type of Surgery: Total Volume in Band: Previous Volume: Volume Removed: Volume Added: Band Size:
--- NOTE | 2021-08-03 17:23 | P.PN ---
Progress Note - Text Progress Note Date: 08/03/21 To whom it may concern:
== END ==
LOC: BARWHC3 13:14
PROVIDERS: ATTEND Surgery Plastic and Reconstructive Surgery
DX: E66.01 Morbid (severe) obesity due to excess calories (principal); Z68.38 Body mass index [BMI] 38.0-38.9, adult; K21.9 Gastro-esophageal reflux disease without esophagitis; M47.9 Spondylosis, unspecified; I11.9 Hypertensive heart disease without heart failure; F32.A Depression, unspecified; K44.9 Diaphragmatic hernia without obstruction or gangrene; K95.89 Other complications of other bariatric procedure; Z87.19 Personal history of other diseases of the digestive system; R00.0 Tachycardia, unspecified; D50.9 Iron deficiency anemia, unspecified; E78.1 Pure hyperglyceridemia; E55.9 Vitamin D deficiency, unspecified; E60 Dietary zinc deficiency; Z98.890 Other specified postprocedural states; Z87.891 Personal history of nicotine dependence
CPT/HCPCS: 99211

== ENCOUNTER → 2021-08-10 | Outpatient (CLI) | payer BC ==
[2021-08-10 13:26] VITALS: BP 117/75; PULSE 96; RESP 16; TEMP 98.7; BMI 35.0
--- NOTE | 2021-08-10 13:47 | P.BASOAP ---
Subjective Progress Note Date: 08/10/21 DATE OF SERVICE: 08/10/2021 CHIEF COMPLAINT: Status post gastric bypass HISTORY OF PRESENT ILLNESS: Shameka Murguia is a 46-year-old female from adjustable gastric band to conversion to gastric bypass, November 2017. She is 4 years out. She is status post revision of gastrojejunostomy, 07/11/2021. She is 1 month out. She is happy with her restriction. She is losing weight. She is eating shredded chicken. She is not aware of her protein intake. She denies hair loss. At height of 5 feet 4 inches, her ideal body weight is 144 pounds. Highest weight 244 pounds, BMI 42.0. Her lowest weight was 155 pounds. She comes in 207 pounds from 212 pounds, 3 weeks ago. She has lost 4 pounds in 3 weeks. Her body mass index is 35.0. She is 64 pounds overweight. Lifetime weight loss of 36 pounds. Percent lifetime excess weight loss of 36%. PHYSICAL EXAM: VITAL SIGNS: Height 5 foot 4.5 inches, weight 207 pounds. BMI 35.0 Vital Signs Temp 98.7 F 08/10/21 13:23 Pulse 96 08/10/21 13:23 Resp 16 08/10/21 13:23 BP 117/75 08/10/21 13:23 Pulse Ox GENERAL: Well-developed in no acute distress. HEENT: No scleral icterus. Extraocular movements grossly intact. Hears conversational speech. No nasal drainage. NECK: Supple without lymphadenopathy. CHEST: Nonlabored respirations with equal bilateral excursions. CARDIOVASCULAR: Tachycardic. Distal 2+ pulses. ABDOMEN: Incisions intact. No infection MUSCULOSKELETAL: No clubbing, cyanosis. NEURO: No focal or lateralizing signs. Cranial nerves 2 through 12 grossly within normal limits. PSYCH: Appropriate affect. Alert and oriented to person, place and time. SKIN: Good skin turgor. Well perfused. ASSESSMENT: 1. Morbid obesity due to excess calories 2. Body mass index of 42.0, initial to 35.0 3. Gastroesophageal reflux disease 4. Osteoarthritis of the lower back. 5. Hypertensive heart disease. 6. Depressive disorder 7. Diaphragmatic hiatal hernia 8. Complications of bariatric procedure, adjustable gastric band 9. History of gastrojejunal ulcer 10. Persistent tachycardia 11. Iron deficiency anemia 12. Hypertriglyceridemia 13. Vitamin D deficiency 14. Zinc deficiency 15. Status post gastrojejunostomy revision PLAN: 1. Recommend food journal. 2. Recommend bariatric labs. Objective - Vital Signs Vital signs: Vital Signs Temp 98.7 F 08/10/21 13:23 Pulse 96 08/10/21 13:23 Resp 16 08/10/21 13:23 BP 117/75 08/10/21 13:23 Pulse Ox Intake & Output 08/09/21 08/10/21 08/10/21 18:59 06:59 18:59 Weight 94.347 kg - Labs CBC & Chem 7: 08/10/21 13:00 08/10/21 13:00 Assessment/Plan Plan: Date: 08/10/21 Initial Weight: 117.934 kg Initial BMI: 43.8 Current Weight: 94.347 kg Current BMI: 35.0 Type of Surgery: Arsh-en-Y Gastric Bypass Total Volume in Band: Previous Volume: Volume Removed: Volume Added: Band Size:
[2021-08-10 14:02] LABS: INR 0.9 (<1.2); Partial Thromboplastin Time 21.9 sec (22.0-30.0); Prothrombin Time 10.3 sec (9.0-12.0)
[2021-08-10 18:27] LABS: HCT 40.3 % (37.2-46.3); HGB 12.8 g/dL (12.0-15.0); MCH 28.9 pg (27.0-32.0); MCHC 31.8 g/dL (32.0-37.0); Mean Platelet Volume 11.3 fL (9.5-12.2); NRBC Per 100 WBC 0 /100 WBCS (0.0-0.0); Platelet Count 256 X 10*3/uL (140-440); RBC 4.43 X 10*6/uL (4.10-5.20); RDW 16.3 % (11.5-14.5); WBC 8.69 X 10*3/uL (4.50-10.00)
[2021-08-10 19:02] LABS: Chol/HDL Ratio 2.94 Ratio; LDL Cholesterol,Calculated 69.7 mg/dL (0.0-131.0); Prealbumin 22.7 mg/dL (18.0-42.0)
[2021-08-10 19:08] LABS: % Iron Saturation 20.07 (12.00-45.00); ALT 14 U/L (8-44); AST 12 U/L (13-35); African American GFR (CKD) 110.7 (60.0-200.0); Albumin 4.4 g/dL (3.8-4.9); Albumin/Globulin Ratio 1.59 (1.60-3.17); Alkaline Phosphatase 80 U/L (41-126); BUN/Creat Ratio 18.68 Ratio (12.00-20.00); Blood Urea Nitrogen 14.1 mg/dL (9.0-27.0); Calcium 9.2 mg/dL (8.7-10.3); Carbon Dioxide 19.1 mmol/L (20.0-27.5); Chloride 104 mmol/L (96-109); Globulin 2.7 g/dL (1.6-3.3); Glucose 71 mg/dL (70-110); Iron 68 ug/dL (50-170); Magnesium 1.9 mg/dL (1.5-2.4); Non-African American GFR(CKD) 95.5 (60.0-200.0); Phosphorus 3.1 mg/dL (2.4-5.1); Potassium 4.5 mmol/L (3.5-5.5); Sodium 139 mmol/L (135-145); Total Iron Binding Capacity 337 ug/dL (228-460); Total Protein 7.1 g/dL (6.2-8.2)
[2021-08-11 13:27] LABS: Zinc, Serum 73 ug/dL (60-130)
[2021-08-12 06:17] LABS: Vitamin A 48 ug/dL (38-106)
[2021-08-13 14:05] LABS: Selenium 138 mcg/L (63-160)
[2021-08-15 07:15] LABS: Vit B1(Thiamine) 51 ug/L (38-122)
== END ==
LOC: BARWHC3 12:53
PROVIDERS: ATTEND Surgery Plastic and Reconstructive Surgery
DX: E66.01 Morbid (severe) obesity due to excess calories (principal); K21.9 Gastro-esophageal reflux disease without esophagitis; M47.816 Spondylosis without myelopathy or radiculopathy, lumbar region; I11.9 Hypertensive heart disease without heart failure; F32.A Depression, unspecified; K44.9 Diaphragmatic hernia without obstruction or gangrene; K95.09 Other complications of gastric band procedure; R00.0 Tachycardia, unspecified; D50.9 Iron deficiency anemia, unspecified; E78.1 Pure hyperglyceridemia; E55.9 Vitamin D deficiency, unspecified; E60 Dietary zinc deficiency; D50.8 Other iron deficiency anemias; K91.2 Postsurgical malabsorption, not elsewhere classified; E44.0 Moderate protein-calorie malnutrition; E45 Retarded development following protein-calorie malnutrition; K74.1 Hepatic sclerosis; N19 Unspecified kidney failure; K50.90 Crohn's disease, unspecified, without complications; E46 Unspecified protein-calorie malnutrition; Z68.35 Body mass index [BMI] 35.0-35.9, adult; Z98.890 Other specified postprocedural states; Z98.84 Bariatric surgery status; Z87.19 Personal history of other diseases of the digestive system; Z87.891 Personal history of nicotine dependence
CPT/HCPCS: 36415; 80053; 80061; 82306; 82525; 82607; 82728; 82746; 83036; 83540; 83550; 83735; 83970; 84100; 84134; 84255; 84425; 84443; 84590; 84630; 85027; 85610; 85730; 99211